=== PATIENT | male | born 1940 | race Two or more races ===

== ENCOUNTER → 2020-07-28 | Outpatient (CLI) | payer MEDICARE, OTHER ==
[~2020-07-28] MED LIST: CHOL500021 PO; DILT240C33 PO; FENO145T3 PO; FINA5TAB4 PO; LEVO50TA5 PO; LISI1TAB23 PO; LOVA20TA2 PO; METF10007 PO; TAMS0.4C97 PO
--- NOTE | 2020-07-28 16:33 | KCIC ---
CT of the chest without contrast 07/28/2020 INDICATION: Lung mass. COMPARISON STUDY: Chest radiograph July 25, 2020. Chest radiograph April 20, 2010. CT of the abdomen and pelvis July 25, 2020 TECHNIQUE: Multidetector CT imaging of the chest was performed without contrast. FINDINGS: Heart is normal in size. No pericardial effusion is seen. Multifocal coronary calcification noted. There is a large peripherally spiculated mass in the right upper lobe. Mass abuts the pleura posteriorly, and the major fissure inferiorly mass measures approximately 5.7 cm x 4.1 cm x 5.2 cm. Anterior and lateral to this also in the upper lobe is a mass somewhat multilobular in appearance measuring approximately 2.5 cm x 2.4 cm x 3.5 cm. Both masses have linear projections extending to the pleura. there is an 8 mm rounded nodule right lower lobe (axial image 34). There is a 5 mm nodule more inferior right lower lobe (axial image 41). There is a partially calcified nodule in the basilar right lower lobe measuring 1.2 cm in diameter (axial image 46).There are few nonspecific sub-5 mm groundglass somewhat nodular opacities in the right middle lobe. There is a subpleural nodular opacity which could reflect scarring in the lingula measuring approximately 1.1 cm in diameter. (Axial image 36). There is a densely sclerotic lesion in the Moderate to severe emphysematous changes are noted throughout the lungs with scattered subpleural and intraparenchymal blebs/cysts. No pleural effusion is seen. No focal infiltrate concerning for pneumonia is seen. No abnormal appearance of the lateral left kidney with calcification. This is partially visualized. The upper abdomen is otherwise unremarkable. There is a densely sclerotic lesion in the right manubrium possibly relating to a bone island. No other acute osseous process is identified. IMPRESSION: 1. 2 large right-sided pulmonary masses with multiple pulmonary nodules as described above in detail. Findings concerning for primary lung cancer with intrapulmonary metastasis. Metastasis from a more remote site is also possible. 2. Moderate to severe emphysematous changes 3. Abnormal appearance of the left kidney. Refer to dedicated contrast-enhanced CT of the abdomen CT DOSING PQRS STATEMENT: One or more of the following individualized dose reduction techniques were utilized for this examination: 1. Automated exposure control 2. Adjustment of the mA and/or kV according to patient size 3. Use of iterative reconstruction technique Electronically signed by: Ozzie Paul MD (07/28/2020 4:31 PM) [id number]
== END | disposition home or self-care (01) ==
LOC: KCIC CT 15:27
PROVIDERS: ATTEND Internal Medicine Pulmonary Disease
DX: J43.9 Emphysema, unspecified (principal); R91.8 Other nonspecific abnormal finding of lung field; I25.10 Atherosclerotic heart disease of native coronary artery without angina pectoris
CPT/HCPCS: 71250

== ENCOUNTER 2020-08-04 08:15 | Outpatient (CLI) | payer MEDICARE, OTHER ==
[2020-08-04] VITALS (14 sets, daily range): BP systolic 105–144; BP diastolic 58–78
[~2020-08-04] VITALS: Ht 160 cm; Wt 74.8 kg
[2020-08-04] MEDS ORDERED: METF10007 PO (08:46)
[2020-08-04] MEDS ORDERED: CHOL500021 PO (08:46)
[2020-08-04] MEDS ORDERED: LISI1TAB23 PO (08:46)
[2020-08-04] MEDS ORDERED: FINA5TAB4 PO (08:46)
[2020-08-04] MEDS ORDERED: TAMS0.4C97 PO (08:46)
[2020-08-04] MEDS ORDERED: LEVO50TA5 PO (08:46)
[2020-08-04] MEDS ORDERED: LOVA20TA2 PO (08:46)
[2020-08-04] MEDS ORDERED: DILT240C33 PO (08:46)
[2020-08-04] MEDS ORDERED: FENO145T3 PO (08:46)
[2020-08-04 09:00] LABS: BASO % 1 % (0-3); EOS # 0.2 x10^3/uL (0.0-0.7); EOS % 2 % (0-3); HEMATOCRIT 41.9 % (39.0-53.0); LYMPH # 0.8 x10^3/uL (1.0-4.8); LYMPH % 9 % (24-48); MEAN CORPUSCULAR HEMOGLOBIN 29 pg (25-35); MEAN CORPUSCULAR HGB CONC 33 g/dL (31-37); MEAN CORPUSCULAR VOLUME 86 fL (79-100); MONO # 0.7 x10^3/uL (0.0-1.1); MONO % 8 % (0-9); NEUT # 6.6 x10^3/uL (1.8-7.7); NEUT % 80 % (31-73); PLATELET COUNT 277 x10^3/uL (140-400); RED BLOOD COUNT 4.88 x10^6/uL (4.30-5.70); RED CELL DISTRIBUTION WIDTH 14.5 % (11.5-14.5); WHITE BLOOD COUNT 8.2 x10^3/uL (4.0-11.0)
[2020-08-04] MEDS ORDERED: LIDOCAINE WITH 8.4% SOD BICARB 3 ML DISP.SYRIN. ONE (09:00)
[2020-08-04 09:09] LABS: PROTHROMBIN TIME PATIENT 12.8 SEC (11.7-14.0)
[2020-08-04 09:12] LABS: CREATININE 1.3 mg/dL (0.7-1.3); GFR 53.4
[2020-08-04] MEDS ORDERED: fentaNYL PF VIAL 100 MCG/2 ML VIAL ONE (09:36)
[2020-08-04] MEDS ORDERED: MIDAZOLAM HCL/PF 2 MG/2 ML VIAL. ONE (09:36)
[2020-08-04] MEDS ORDERED: MIDAZOLAM HCL/PF 2 MG/2 ML VIAL. IV ONE (09:45)
[2020-08-04] MEDS ORDERED: fentaNYL PF VIAL 100 MCG/2 ML VIAL IV ONE (09:45)
[2020-08-04] MEDS ORDERED: LIDOCAINE WITH 8.4% SOD BICARB 3 ML DISP.SYRIN. IJ ONE (09:45)
--- NOTE | 2020-08-04 10:07 | PDOC ---
BRIEF OPERATIVE NOTE Pre-Op Diagnosis left lung mass Post-Op Diagnosis same Procedure Performed CT biopsy Surgeon Josh Anesthesia Type: Conscious Sedation Specimens Obtained 4 x 20g cores Findings left lung mass biopsy Complications No immediate DANYELL SIERRA MD Aug 04, 2020 10:07
--- NOTE | 2020-08-04 12:59 | NUR ---
discharge instructions reviewed with patient. Pt ambulated and tolerated PO. PIV dc'd. Pt discharged home with family
--- NOTE | 2020-08-04 13:09 | RAD ---
2 frontal views of the chest in inspiration and expiration without comparison for status post lung biopsy. FINDINGS: Right lung masses are identified projecting over the upper lobe. No pneumothorax or pleural effusion is seen. Left lung is clear. Heart size within normal limits. IMPRESSION: 1. No pneumothorax or pleural effusion status post right lung biopsy. Electronically signed by: Chadwick Moreno MD (08/04/2020 1:07 PM) [id number]
--- NOTE | 2020-08-04 16:44 | RAD ---
Procedure: CT-guided biopsy of right lung mass Clinical Indication: Adult male with posterior right lung mass suspicious for neoplasm Sedation: Conscious sedation was administered with a total intraprocedural [id number] time of 15 minutes. The patient was monitored by a qualified independent observer throughout the time of sedation. Please refer to the medical record for exact doses of medications utilized to achieve moderate sedation. Antibiotics: None Sterility: The procedure was performed in its entirety using appropriate elements of sterile technique. Consent: The procedure was explained in its entirety to the patient or the patients designated service support representative by a member of the treatment team, including a discussion of the risks, benefits and commonly accepted alternatives to the procedure, as well as the expected consequences of no therapy whatsoever. Discussion of the risks included, but was not limited to, those that are most frequent and those that are rare but possibly severe or life-threatening, as well as the possibility of unforeseen complications. Technique and Findings: Following informed consent, the patient was prepped and draped in usual sterile fashion. Preliminary CT scan of the area of interest was performed. 1% lidocaine was used to achieve local anesthesia over the area of interest. A small dermatotomy was made. Under periodic CT surveillance, a 19-gauge needle guide was advanced towards the target lesion 4 separate 20-gauge core biopsy specimens were obtained and preserved in formalin. A blood patch was applied as the needle guide was removed and hemostasis was achieved with manual compression. Complications: No images Impression: 1. CT-guided right lung biopsy as described. PQRS Compliance Statement: One or more of the following individualized dose reduction techniques were utilized for this examination: 1. Automated exposure control 2. Adjustment of the mA and/or kV according to patient size 3. Use of iterative reconstruction technique
--- NOTE | 2020-08-08 14:07 | PATHOLOGY ---
[facility] Accession Number: [id number] . 01 Material submitted: . lung - RIGHT LUNG MASS CORE BIOPSY. Modifiers: right . 01 Clinical history: . RIGHT LUNG MASS . 02 Diagnosis: Lung tissue, right lung mass needle biopsies: - ADENOCARCINOMA, MODERATELY DIFFERENTIATED, WITH ASSOCIATED PULMONARY SCAR. SEE COMMENT. (JPM:[facility] 08/08/2020) [facility] 08/08/2020 1337 Local . 02 Comment: Sections of the right lung mass needle biopsy reveal replacement of lung parenchyma by scar tissue. Focally present within the scar tissue are irregular glands. The glands are lined by atypical cells having pale eosinophilic to vacuolated cytoplasm, and possessing enlarged, moderately pleomorphic hyperchromatic nuclei focally containing prominent nucleoli. There is focal tumor necrosis. 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 The case is also examined by Dr. Gil, who concurs with the diagnosis. The results are telephoned to Dr Romo at 1:35 PM on 08/08/20. ([facility] 08/08/2020) . 02 Electronically signed: . Moise James MD, Pathologist NPI- [id number] . 01 Gross description: . The specimen is received in formalin, labeled "Chad Yeh, right lung biopsy". Received are six needle cores of pale acuna soft tissue ranging in length from 0.3 to 0.6 cm in length by 0.1 cm in diameter. The specimen is submitted entirely in cassette A1 through A3. ([facility]; 08/05/2020) QAC/QAC 08/05/2020 1611 Local . 02 Pathologist provided ICD-10: C34.91 . 02 CPT . 601291 Specimen Comment: A courtesy copy of this report has been sent to [phone], [phone] Specimen Comment: [id number], Specimen Comment: Report sent to ,DR ORTIZ / DR RIVER Performed at: 01 [facility] [address], [place] [id number] MD Kip Mccabe MD Phone: [phone] Performed at: 02 [facility] [address] [place], [place] [id number] MD Moise James MD Phone: [phone]
== END 2020-08-04 13:08 | disposition home or self-care (01) ==
LOC: INTRAD 08:15
PROVIDERS: ATTEND Internal Medicine Pulmonary Disease
DX: R91.8 Other nonspecific abnormal finding of lung field (principal); J43.9 Emphysema, unspecified; Z87.891 Personal history of nicotine dependence; Z79.899 Other long term (current) drug therapy; Z79.01 Long term (current) use of anticoagulants
CPT/HCPCS: 32405; 36415; 71046; 77012; 80048; 85025; 85610; 99152; J2250; J3010; J3490; 88305; 88341; 88342

== ENCOUNTER → 2020-08-19 | Outpatient (CLI) | payer MEDICARE, OTHER ==
[2020-08-04 12:40] VITALS: BP 105/65
[~2020-08-19] MED LIST changes: +GADOTERATE 7.5 MMOL/15ML VIAL. IVP ONE
--- NOTE | 2020-08-19 13:12 | RAD ---
MRI Brain with and without contrast History:Lung adenocarcinoma Technique: Multiplanar, multi sequential pre and postcontrast MR imaging was performed of the brain. Comparison: None Findings: There is mild motion. There is no evidence of recent infarct or cytotoxic edema. Ventricular size is within normal limits. There is mild generalized supratentorial atrophy.There is no significant midline shift, intraaxial mass effect, or focal abnormal extra-axial fluid collection. There is small focus of nonenhancing T2 and FLAIR hyperintense signal of the right frontal peripheral deep white matter. 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 There is no nodular parenchymal or leptomeningeal enhancement. There is preservation of the major intracranial flow-voids at the skull base. The cerebellar tonsils are normal in location. There is no significant abnormality of the pineal gland or pituitary gland. There is mild to moderate bilateral ethmoid air cell mucosal thickening. There is very minimal patchy fluid of the left mastoid air cells.There is preserved marrow signal of the clivus. There is focus of nonenhancing decreased signal on all sequences of the right parietal scalp, could be complex sebaceous cyst or nonspecific calcification. Impression: 1. There is no abnormal intracranial enhancement. 2. There is mild fairly generalized supratentorial atrophy. There is small focus of nonenhancing T2 hyperintense on the right frontal deep white matter most likely sequela of previous ischemia. 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 Electronically signed by: Cameron Golden MD (08/19/2020 1:10 PM) [id number]
--- NOTE | 2020-08-19 18:59 | RAD ---
EXAMINATION: PET W CT SKULL TO MIDTHIGH HISTORY: Lung adenocarcinoma COMPARISON/CORRELATION: CT chest abdomen and pelvis 01/12/2009 with contrast, CT chest without contrast 04/04/2012, CT chest without contrast 07/28/2020 FINDINGS: Net dose 14.49 mCi F-18 FDG was administered intravenously for purposes of PET/CT exam. Blood glucose level at the time of radiotracer administration was 148 mg/dL. Imaging was performed from the skull base to the proximal thighs. Hepatic reference uptake is SUV max of 3.3 . Head and neck No abnormal uptake. Thorax The patient's known posterior right upper lung mass which abuts the pleura, intense uptake is seen primarily in its periphery with SUV max of 7.5. Central photopenia noted. At the smaller mass which is at the same level anterolaterally, SUV max is 8.4. At the right lower lobe nodule at the mid thoracic level, no uptake is evident. This 0.7 cm diameter nodule is borderline in size for PET resolution. This nodule likely represents a benign process however as it is similar upon correlation with 04/04/2012 CT chest without contrast exam. Within the lingula, there is nodular scarring which abuts the pleura measuring up to 1 cm diameter on axial image 25 of series 3. This has SUV max of 2.2. Centrilobular emphysema is seen. Right lung base calcified granuloma is present. Sclerotic density at the right manubrium is mildly increased in size compared to 04/04/2012 compatible with a bone island. ABDOMEN: Fatty infiltration of liver is present. Cholelithiasis noted. Scarring involving the left kidney posteriorly is present. No abnormal uptake involving the upper abdomen. Midline ventral hernia is large in size containing nonstrangulated segment of the transverse colon. Nonenlarged mesenteric lymph nodes are present. Pelvis Marked prostatomegaly is present. Prostate gland measures 6.8 cm transverse by 5.7 cm anteroposterior. No enlarged pelvic lymph nodes. There are scattered sclerotic foci involving the lower lumbar spine and bony pelvis. Many of these are similar upon correlation with 01/12/2009 CT exam compatible with bone islands although some have increased in size since then. There is punctate density on axial image 351 of series #3 involving the left symphysis pubis and it measures 0.3 cm in diameter. Also at the right posterior column, there is a sclerotic density measuring 0.7 cm diameter which is new in the interval. Bilateral inguinal hernias are present containing omental fat. IMPRESSION: Intense uptake involving the known right upper lung mass is compatible with active neoplastic involvement. Uptake involving the lingular nodular scar is present but not especially intense. Interval follow-up to assess stability by CT may be performed. Marked prostatomegaly. Multiple sclerotic bony densities are present involving the lower lumbar spine and pelvis although many of these are seen on the previous CT exam. These are compatible with bone islands. Very few sclerotic densities are new in the interval. PQRS Compliance Statement: One or more of the following individualized dose reduction techniques were utilized for this examination: 1. Automated exposure control 2. Adjustment of the mA and/or kV according to patient size 3. Use of iterative reconstruction technique Electronically signed by: Rishi Marcial MD (08/19/2020 6:56 PM) [id number]
== END | disposition home or self-care (01) ==
LOC: PETSC 09:43
PROVIDERS: ATTEND Internal Medicine Hematology & Oncology
DX: C34.11 Malignant neoplasm of upper lobe, right bronchus or lung (principal); R91.1 Solitary pulmonary nodule; E03.9 Hypothyroidism, unspecified; N40.0 Benign prostatic hyperplasia without lower urinary tract symptoms; K40.90 Unilateral inguinal hernia, without obstruction or gangrene, not specified as recurrent; K76.0 Fatty (change of) liver, not elsewhere classified; K80.20 Calculus of gallbladder without cholecystitis without obstruction; G31.89 Other specified degenerative diseases of nervous system; Z86.73 Personal history of transient ischemic attack (TIA), and cerebral infarction without residual deficits
CPT/HCPCS: 70553; 78815; A9552; A9575

== ENCOUNTER → 2020-08-26 | Outpatient (CLI) | payer MEDICARE, OTHER ==
[2020-08-04 12:40] VITALS: BP 105/65
[~2020-08-26] MED LIST changes: -GADOTERATE 7.5 MMOL/15ML VIAL. IVP ONE
[2020-08-26 10:10] LABS: BASO # 0.1 x10^3/uL (0.0-0.2); BASO % 1 % (0-3); EOS # 0.2 x10^3/uL (0.0-0.7); EOS % 2 % (0-3); HEMATOCRIT 43.6 % (39.0-53.0); HEMOGLOBIN 14.9 g/dL (13.0-17.5); LYMPH # 0.8 x10^3/uL (1.0-4.8); LYMPH % 10 % (24-48); MEAN CORPUSCULAR HEMOGLOBIN 29 pg (25-35); MEAN CORPUSCULAR HGB CONC 34 g/dL (31-37); MEAN CORPUSCULAR VOLUME 85 fL (79-100); MONO # 0.6 x10^3/uL (0.0-1.1); MONO % 7 % (0-9); NEUT # 6.8 x10^3/uL (1.8-7.7); NEUT % 81 % (31-73); PLATELET COUNT 278 x10^3/uL (140-400); RED BLOOD COUNT 5.13 x10^6/uL (4.30-5.70); RED CELL DISTRIBUTION WIDTH 14.4 % (11.5-14.5); WHITE BLOOD COUNT 8.5 x10^3/uL (4.0-11.0)
[2020-08-26 10:24] LABS: CALCIUM 9.5 mg/dL (8.5-10.1); CREATININE 1.3 mg/dL (0.7-1.3); GFR 53.4; POTASSIUM 3.8 mmol/L (3.5-5.1)
[2020-08-26 10:30] LABS: ALBUMIN 3.7 g/dL (3.4-5.0); ALBUMIN/GLOBULIN RATIO 0.9 (1.0-1.7); TOTAL BILIRUBIN 0.4 mg/dL (0.2-1.0); TOTAL PROTEIN 7.7 g/dL (6.4-8.2)
== END | disposition home or self-care (01) ==
LOC: ONCLAB 09:48
PROVIDERS: ATTEND Internal Medicine Hematology & Oncology
DX: Z12.5 Encounter for screening for malignant neoplasm of prostate (principal); C34.11 Malignant neoplasm of upper lobe, right bronchus or lung
CPT/HCPCS: 36415; 80053; 85025; G0103

== ENCOUNTER → 2020-09-20 | Outpatient (CLI) | payer MEDICARE, OTHER ==
[2020-08-04 12:40] VITALS: BP 105/65
[2020-09-20 10:00] LABS: BASO % 0 % (0-3); EOS # 0.2 x10^3/uL (0.0-0.7); EOS % 2 % (0-3); HEMATOCRIT 42.7 % (39.0-53.0); HEMOGLOBIN 14.3 g/dL (13.0-17.5); LYMPH # 0.7 x10^3/uL (1.0-4.8); LYMPH % 8 % (24-48); MEAN CORPUSCULAR HEMOGLOBIN 29 pg (25-35); MEAN CORPUSCULAR HGB CONC 33 g/dL (31-37); MEAN CORPUSCULAR VOLUME 86 fL (79-100); MONO # 0.6 x10^3/uL (0.0-1.1); MONO % 7 % (0-9); NEUT # 7.1 x10^3/uL (1.8-7.7); NEUT % 83 % (31-73); PLATELET COUNT 272 x10^3/uL (140-400); RED BLOOD COUNT 4.95 x10^6/uL (4.30-5.70); RED CELL DISTRIBUTION WIDTH 14.6 % (11.5-14.5); WHITE BLOOD COUNT 8.5 x10^3/uL (4.0-11.0)
[2020-09-20 10:22] LABS: CALCIUM 9.7 mg/dL (8.5-10.1); CREATININE 1.3 mg/dL (0.7-1.3); GFR 53.4
[2020-09-20 10:32] LABS: ALBUMIN 3.4 g/dL (3.4-5.0); ALBUMIN/GLOBULIN RATIO 0.9 (1.0-1.7); MAGNESIUM 1.9 mg/dL (1.8-2.4); TOTAL BILIRUBIN 0.3 mg/dL (0.2-1.0); TOTAL PROTEIN 7.4 g/dL (6.4-8.2)
== END ==
LOC: ONCLAB 09:27
PROVIDERS: ATTEND Internal Medicine Hematology & Oncology
DX: C34.11 Malignant neoplasm of upper lobe, right bronchus or lung (principal)
CPT/HCPCS: 36415; 80053; 82378; 83615; 83735; 85025

== ENCOUNTER → 2020-09-22 | Outpatient (CLI) | payer MEDICARE, OTHER ==
[2020-08-04 12:40] VITALS: BP 105/65
[2020-09-22 14:28] LABS: BASO % 0 % (0-3); EOS % 0 % (0-3); HEMATOCRIT 41.4 % (39.0-53.0); HEMOGLOBIN 14.1 g/dL (13.0-17.5); LYMPH # 0.7 x10^3/uL (1.0-4.8); LYMPH % 6 % (24-48); MEAN CORPUSCULAR HEMOGLOBIN 29 pg (25-35); MEAN CORPUSCULAR HGB CONC 34 g/dL (31-37); MEAN CORPUSCULAR VOLUME 86 fL (79-100); MONO # 0.5 x10^3/uL (0.0-1.1); MONO % 4 % (0-9); NEUT # 11.6 x10^3/uL (1.8-7.7); NEUT % 90 % (31-73); PLATELET COUNT 292 x10^3/uL (140-400); RED BLOOD COUNT 4.82 x10^6/uL (4.30-5.70); RED CELL DISTRIBUTION WIDTH 14.8 % (11.5-14.5); WHITE BLOOD COUNT 12.8 x10^3/uL (4.0-11.0)
[2020-09-22 14:42] LABS: CALCIUM 9.5 mg/dL (8.5-10.1); CREATININE 1.6 mg/dL (0.7-1.3)
[2020-09-22 14:47] LABS: ALBUMIN 3.7 g/dL (3.4-5.0); ALBUMIN/GLOBULIN RATIO 1.1 (1.0-1.7); DIRECT BILIRUBIN 0.1 mg/dL (0.0-0.2); TOTAL BILIRUBIN 0.3 mg/dL (0.2-1.0); TOTAL PROTEIN 7.2 g/dL (6.4-8.2)
[2020-09-22 15:20] LABS: % LYMPHS 5 % (24-48); % MONOS 4 % (0-10); % SEGS 91 % (35-66); PLT ESTIMATE ADEQUATE (ADEQUATE); TOXIC VACUOLATION SLIGHT
== END ==
LOC: ONCLAB 14:12
PROVIDERS: ATTEND Internal Medicine Hematology & Oncology
DX: C34.11 Malignant neoplasm of upper lobe, right bronchus or lung (principal)
CPT/HCPCS: 36415; 80053; 82248; 83615; 85007; 85025

== ENCOUNTER 2020-09-23 06:58 | Outpatient (CLI) | payer MEDICARE, OTHER ==
[~2020-09-23] VITALS: Ht 162.6 cm; Wt 76.7 kg
[2020-09-23] VITALS (7 sets, daily range): BP systolic 86–140; BP diastolic 50–72
[2020-09-23] MEDS ORDERED: ceFAZolin SODIUM IV Push 1 GM VIAL. IVP ONE ×2 (07:15→08:32)
[2020-09-23] MEDS ORDERED: LIDOCAINE 1%/EPI 1:100,000 20 ML VIAL. ONE (08:00)
[2020-09-23 08:18] LABS: PROTHROMBIN TIME PATIENT 12.8 SEC (11.7-14.0)
[2020-09-23] MEDS ORDERED: MIDAZOLAM HCL/PF 2 MG/2 ML VIAL. ONE (08:32)
[2020-09-23] MEDS ORDERED: fentaNYL PF VIAL 100 MCG/2 ML VIAL ONE (08:32)
[2020-09-23] MEDS ORDERED: LIDOCAINE 1%/EPI 1:100,000 20 ML VIAL. INJ ONE (09:00)
[2020-09-23] MEDS ORDERED: fentaNYL PF VIAL 100 MCG/2 ML VIAL IV ONE (09:00)
[2020-09-23] MEDS ORDERED: MIDAZOLAM HCL/PF 2 MG/2 ML VIAL. IV ONE (09:00)
--- NOTE | 2020-09-23 10:28 | RAD ---
Procedure: Ultrasound and fluoroscopically guided placement of left internal jugular power port.. 09/23/2020 8:24 AM Clinical Indication: LUNG CA Sedation: Conscious sedation was administered for 30 minutes. The patient was monitored by a qualified independent observer throughout the time of sedation. Please refer to the medical record for exact doses of medications utilized to achieve moderate sedation. Fluoroscopy time: 0.3 minutes Dose area product: 1 Gycm2 Consent: The procedure was explained in its entirety to the patient or the patients designated patient intake representative by a member of the treatment team, including a discussion of the risks, benefits and commonly accepted alternatives to the procedure, as well as the expected consequences of no therapy whatsoever. Discussion of the risks included, but was not limited to, those that are most frequent and those that are rare but possibly severe or life-threatening, as well as the possibility of unforeseen complications. Technique and Findings: All elements of maximal sterile barrier technique including the use of a cap, mask, sterile gown, sterile gloves, large sterile sheet, appropriate hand hygiene, and 2% chlorhexidine for cutaneous antisepsis (or acceptable alternative antiseptic per current guidelines) were followed for this procedure. Following informed consent, and a timeout procedure, the patient was prepped and draped in the usual sterile fashion. Ultrasound interrogation of the left neck revealed patency and compressibility of the left internal jugular vein. A 21-gauge micropuncture was then used to gain access to this vein under ultrasound guidance. A hard copy ultrasound image was recorded. The needle was exchanged over a wire for a sheath. A 1 inch incision was made several centimeters inferior to the venotomy site. A catheter was tunneled from this site dermatotomy site in the neck. Catheter was advanced through peel-away sheath such that its tip was in the proximal right atrium with the patient supine. The catheter was trimmed to length and connected to the port reservoir. The port was found to flush and aspirate normally. The wound was closed in layers using 4-0 Vicryl suture. Sterile dressings were applied. Impression: Successful ultrasound and fluoroscopically guided placement of a left internal jugular PowerPort
--- NOTE | 2020-09-23 10:40 | NUR ---
Discharge Note: BEATRIZ TAM Discharge instructions and discharge home medications reviewed with Patient and a copy given. All questions have been answered and understanding verbalized. The following instructions and handouts were given: moderate sedation,implanted port & packet of port instructions with needle Discontinued lines and drains: Peripheral IV intact. Patient discharged to Home or Self Care withFamily Membervia Wheelchair
== END 2020-09-23 10:43 | disposition home or self-care (01) ==
LOC: INTRAD 06:58
PROVIDERS: ATTEND Internal Medicine Hematology & Oncology
DX: C34.92 Malignant neoplasm of unspecified part of left bronchus or lung (principal); E03.9 Hypothyroidism, unspecified; Z79.01 Long term (current) use of anticoagulants; Z87.891 Personal history of nicotine dependence; Z79.899 Other long term (current) drug therapy
CPT/HCPCS: 36415; 36561; 76937; 77001; 85610; 85730; 99152; 99153; C1751; C1769; C1892; J0690; J2250; J3010; J3490

== ENCOUNTER → 2020-09-27 | Outpatient (CLI) | payer MEDICARE, OTHER ==
[2020-09-23 10:25] VITALS: BP 114/58
[2020-09-27 09:33] LABS: BASO % 1 % (0-3); EOS # 0.1 x10^3/uL (0.0-0.7); EOS % 2 % (0-3); HEMOGLOBIN 13.1 g/dL (13.0-17.5); LYMPH # 0.5 x10^3/uL (1.0-4.8); LYMPH % 9 % (24-48); MEAN CORPUSCULAR HEMOGLOBIN 29 pg (25-35); MEAN CORPUSCULAR HGB CONC 34 g/dL (31-37); MEAN CORPUSCULAR VOLUME 86 fL (79-100); MONO # 0.4 x10^3/uL (0.0-1.1); MONO % 7 % (0-9); NEUT % 82 % (31-73); PLATELET COUNT 246 x10^3/uL (140-400); RED BLOOD COUNT 4.56 x10^6/uL (4.30-5.70); RED CELL DISTRIBUTION WIDTH 14.1 % (11.5-14.5); WHITE BLOOD COUNT 6.1 x10^3/uL (4.0-11.0)
[2020-09-27 09:46] LABS: CALCIUM 9.4 mg/dL (8.5-10.1); CREATININE 1.2 mg/dL (0.7-1.3); GFR 58.6; POTASSIUM 3.8 mmol/L (3.5-5.1)
[2020-09-27 09:52] LABS: ALBUMIN 3.3 g/dL (3.4-5.0); ALBUMIN/GLOBULIN RATIO 0.9 (1.0-1.7); DIRECT BILIRUBIN 0.1 mg/dL (0.0-0.2); TOTAL BILIRUBIN 0.2 mg/dL (0.2-1.0); TOTAL PROTEIN 6.9 g/dL (6.4-8.2)
== END ==
LOC: ONCLAB 09:12
PROVIDERS: ATTEND Internal Medicine Hematology & Oncology
DX: C34.11 Malignant neoplasm of upper lobe, right bronchus or lung (principal)
CPT/HCPCS: 36415; 80053; 82248; 83615; 85025

== ENCOUNTER → 2020-10-04 | Outpatient (CLI) | payer MEDICARE, OTHER ==
[2020-09-23 10:25] VITALS: BP 114/58
[2020-10-04 09:42] LABS: BASO % 0 % (0-3); EOS % 1 % (0-3); HEMATOCRIT 37.5 % (39.0-53.0); HEMOGLOBIN 12.5 g/dL (13.0-17.5); LYMPH # 0.3 x10^3/uL (1.0-4.8); LYMPH % 6 % (24-48); MEAN CORPUSCULAR HEMOGLOBIN 29 pg (25-35); MEAN CORPUSCULAR HGB CONC 33 g/dL (31-37); MEAN CORPUSCULAR VOLUME 86 fL (79-100); MONO # 0.5 x10^3/uL (0.0-1.1); MONO % 10 % (0-9); NEUT # 4.5 x10^3/uL (1.8-7.7); NEUT % 83 % (31-73); PLATELET COUNT 235 x10^3/uL (140-400); RED BLOOD COUNT 4.37 x10^6/uL (4.30-5.70); RED CELL DISTRIBUTION WIDTH 14.7 % (11.5-14.5); WHITE BLOOD COUNT 5.4 x10^3/uL (4.0-11.0)
[2020-10-04 10:04] LABS: CREATININE 1.1 mg/dL (0.7-1.3); GFR 64.7; POTASSIUM 3.7 mmol/L (3.5-5.1)
[2020-10-04 10:07] LABS: ALBUMIN 3.2 g/dL (3.4-5.0); ALBUMIN/GLOBULIN RATIO 0.9 (1.0-1.7); TOTAL BILIRUBIN 0.3 mg/dL (0.2-1.0); TOTAL PROTEIN 6.6 g/dL (6.4-8.2)
== END ==
LOC: ONCLAB 09:16
PROVIDERS: ATTEND Internal Medicine Hematology & Oncology
DX: C34.11 Malignant neoplasm of upper lobe, right bronchus or lung (principal)
CPT/HCPCS: 36415; 80053; 85025

== ENCOUNTER → 2020-10-11 | Outpatient (CLI) | payer MEDICARE, OTHER ==
[2020-09-23 10:25] VITALS: BP 114/58
[2020-10-11 09:25] LABS: BASO % 1 % (0-3); EOS % 1 % (0-3); HEMATOCRIT 37.3 % (39.0-53.0); HEMOGLOBIN 12.6 g/dL (13.0-17.5); LYMPH # 0.2 x10^3/uL (1.0-4.8); LYMPH % 6 % (24-48); MEAN CORPUSCULAR HEMOGLOBIN 29 pg (25-35); MEAN CORPUSCULAR HGB CONC 34 g/dL (31-37); MEAN CORPUSCULAR VOLUME 87 fL (79-100); MONO # 0.4 x10^3/uL (0.0-1.1); MONO % 10 % (0-9); NEUT # 3.4 x10^3/uL (1.8-7.7); NEUT % 82 % (31-73); PLATELET COUNT 206 x10^3/uL (140-400); RED BLOOD COUNT 4.31 x10^6/uL (4.30-5.70); RED CELL DISTRIBUTION WIDTH 14.4 % (11.5-14.5); WHITE BLOOD COUNT 4.1 x10^3/uL (4.0-11.0)
[2020-10-11 09:38] LABS: CALCIUM 8.9 mg/dL (8.5-10.1); CREATININE 1.1 mg/dL (0.7-1.3); GFR 64.7; POTASSIUM 4.1 mmol/L (3.5-5.1)
[2020-10-11 09:44] LABS: ALBUMIN 3.3 g/dL (3.4-5.0); TOTAL BILIRUBIN 0.3 mg/dL (0.2-1.0); TOTAL PROTEIN 6.7 g/dL (6.4-8.2)
[2020-10-11 12:43] LABS: % ATYL 1 % (0-0); % BANDS 14 % (0-9); % BASOS 2 % (0-3); % EOS 1 % (0-5); % LYMPHS 5 % (24-48); % MONOS 10 % (0-10); % MYELOS 1 % (0-0); % SEGS 66 % (35-66); NUCLEATED RBC 1
[2020-10-11 12:45] LABS: PLT ESTIMATE ADEQUATE (ADEQUATE)
== END ==
LOC: ONCLAB 09:10
PROVIDERS: ATTEND Internal Medicine Hematology & Oncology
DX: C34.11 Malignant neoplasm of upper lobe, right bronchus or lung (principal)
CPT/HCPCS: 36415; 80053; 85007; 85025

== ENCOUNTER → 2020-10-18 | Outpatient (CLI) | payer MEDICARE, OTHER ==
[2020-09-23 10:25] VITALS: BP 114/58
[2020-10-18 09:45] LABS: BASO % 1 % (0-3); EOS % 0 % (0-3); HEMATOCRIT 36.4 % (39.0-53.0); HEMOGLOBIN 12.2 g/dL (13.0-17.5); LYMPH # 0.2 x10^3/uL (1.0-4.8); LYMPH % 3 % (24-48); MEAN CORPUSCULAR HEMOGLOBIN 29 pg (25-35); MEAN CORPUSCULAR HGB CONC 34 g/dL (31-37); MEAN CORPUSCULAR VOLUME 87 fL (79-100); MONO # 0.5 x10^3/uL (0.0-1.1); MONO % 9 % (0-9); NEUT # 4.8 x10^3/uL (1.8-7.7); NEUT % 87 % (31-73); PLATELET COUNT 162 x10^3/uL (140-400); RED BLOOD COUNT 4.17 x10^6/uL (4.30-5.70); RED CELL DISTRIBUTION WIDTH 15.3 % (11.5-14.5); WHITE BLOOD COUNT 5.6 x10^3/uL (4.0-11.0)
[2020-10-18 09:50] LABS: CALCIUM 8.9 mg/dL (8.5-10.1); CREATININE 1.2 mg/dL (0.7-1.3); GFR 58.6; POTASSIUM 3.9 mmol/L (3.5-5.1)
[2020-10-18 09:59] LABS: ALBUMIN 3.3 g/dL (3.4-5.0); TOTAL BILIRUBIN 0.3 mg/dL (0.2-1.0); TOTAL PROTEIN 6.6 g/dL (6.4-8.2)
== END ==
LOC: ONCLAB 09:16
PROVIDERS: ATTEND Internal Medicine Hematology & Oncology
DX: C34.11 Malignant neoplasm of upper lobe, right bronchus or lung (principal)
CPT/HCPCS: 36415; 80053; 85025

== ENCOUNTER → 2020-10-25 | Outpatient (CLI) | payer MEDICARE, OTHER ==
[2020-09-23 10:25] VITALS: BP 114/58
[2020-10-25 09:44] LABS: BASO % 0 % (0-3); EOS % 1 % (0-3); HEMATOCRIT 34.7 % (39.0-53.0); HEMOGLOBIN 11.8 g/dL (13.0-17.5); LYMPH # 0.2 x10^3/uL (1.0-4.8); LYMPH % 5 % (24-48); MEAN CORPUSCULAR HEMOGLOBIN 30 pg (25-35); MEAN CORPUSCULAR HGB CONC 34 g/dL (31-37); MEAN CORPUSCULAR VOLUME 88 fL (79-100); MONO # 0.3 x10^3/uL (0.0-1.1); MONO % 10 % (0-9); NEUT # 2.8 x10^3/uL (1.8-7.7); NEUT % 84 % (31-73); PLATELET COUNT 136 x10^3/uL (140-400); RED BLOOD COUNT 3.97 x10^6/uL (4.30-5.70); RED CELL DISTRIBUTION WIDTH 16.1 % (11.5-14.5); WHITE BLOOD COUNT 3.3 x10^3/uL (4.0-11.0)
[2020-10-25 09:54] LABS: CALCIUM 8.9 mg/dL (8.5-10.1); CREATININE 1.3 mg/dL (0.7-1.3); GFR 53.4
[2020-10-25 10:00] LABS: ALBUMIN 3.2 g/dL (3.4-5.0); ALBUMIN/GLOBULIN RATIO 1.1 (1.0-1.7); TOTAL BILIRUBIN 0.3 mg/dL (0.2-1.0); TOTAL PROTEIN 6.2 g/dL (6.4-8.2)
== END ==
LOC: ONCLAB 09:15
PROVIDERS: ATTEND Internal Medicine Hematology & Oncology
DX: C34.11 Malignant neoplasm of upper lobe, right bronchus or lung (principal)
CPT/HCPCS: 36415; 80053; 85025

== ENCOUNTER → 2020-10-28 | Outpatient (CLI) | payer MEDICARE, OTHER ==
[2020-09-23 10:25] VITALS: BP 114/58
--- NOTE | 2020-10-28 16:45 | RAD ---
EXAM: CHEST PA LATERAL INDICATION: Left basilar abnormal lung sounds on physical exam. History of adenocarcinoma.. TECHNIQUE: PA and lateral views COMPARISON: CT chest without IV contrast of 07/28/2020 and chest x-ray of 08/04/2020 FINDINGS: Interval placement of a left jugular approach tunneled chest port with the tip near the cavoatrial junction. The heart size is normal. The great vessels appear unremarkable. There is no hilar or mediastinal mass. Lungs show interval cavitation in the dominant posterior right upper lobe lung mass and decrease in density in the more peripheral and slightly smaller right upper lobe lung mass, compatible with a positive treatment response. An additional peripheral nodular density in the inferior left lung is present, projecting over the anterior left sixth rib and posterior left ninth rib. There is interval hazy opacity at the left lung base that has developed in the posterior costophrenic angle. There is no pleural effusion or pneumothorax. There are no significant osseous abnormalities. IMPRESSION: 1. Left lower lobe ill-defined infiltrate compatible with a developing pneumonia. Correlate clinically. 2. Lung masses bilaterally showing evidence of a positive treatment response most conspicuously in the dominant right upper lobe mass. Discussed with Dr. Cooley in person at 1:35 PM on 10/28/2020 Electronically signed by: Edward Sloan MD (10/28/2020 2:20 PM) [id number]
== END ==
LOC: RAD 10:11
PROVIDERS: ATTEND Radiology Radiation Oncology
DX: C34.11 Malignant neoplasm of upper lobe, right bronchus or lung (principal); R91.1 Solitary pulmonary nodule
CPT/HCPCS: 71046

== ENCOUNTER → 2020-11-01 | Outpatient (CLI) | payer MEDICARE, OTHER ==
[2020-09-23 10:25] VITALS: BP 114/58
[2020-11-01 10:58] LABS: CALCIUM 8.5 mg/dL (8.5-10.1); CREATININE 1.1 mg/dL (0.7-1.3); GFR 64.7; POTASSIUM 3.8 mmol/L (3.5-5.1)
[2020-11-01 11:04] LABS: BASO % 0 % (0-3); EOS % 1 % (0-3); HEMATOCRIT 32.9 % (39.0-53.0); LYMPH # 0.2 x10^3/uL (1.0-4.8); LYMPH % 9 % (24-48); MEAN CORPUSCULAR HEMOGLOBIN 29 pg (25-35); MEAN CORPUSCULAR HGB CONC 34 g/dL (31-37); MEAN CORPUSCULAR VOLUME 88 fL (79-100); MONO # 0.2 x10^3/uL (0.0-1.1); MONO % 13 % (0-9); NEUT # 1.4 x10^3/uL (1.8-7.7); NEUT % 77 % (31-73); PLATELET COUNT 170 x10^3/uL (140-400); RED BLOOD COUNT 3.75 x10^6/uL (4.30-5.70); TOTAL BILIRUBIN 0.3 mg/dL (0.2-1.0)
[2020-11-01 11:08] LABS: WHITE BLOOD COUNT 1.8 x10^3/uL (4.0-11.0)
[2020-11-01 13:17] LABS: % BANDS 7 % (0-9); % BASOS 2 % (0-3); % LYMPHS 5 % (24-48); % MONOS 11 % (0-10); % SEGS 75 % (35-66); PLT ESTIMATE ADEQUATE (ADEQUATE)
[2020-11-01 13:18] LABS: ANISOCYTOSIS PRESENT
== END ==
LOC: SPEC 10:36
PROVIDERS: ATTEND Internal Medicine Hematology & Oncology
DX: C34.11 Malignant neoplasm of upper lobe, right bronchus or lung (principal)
CPT/HCPCS: 36415; 80053; 85007; 85025

== ENCOUNTER → 2020-12-08 | Outpatient (CLI) | payer MEDICARE, OTHER ==
[2020-09-23 10:25] VITALS: BP 114/58
--- NOTE | 2020-12-08 11:07 | RAD ---
Noncontrast CT scan of the chest compared to PET scan dated August 19, 2020 for lung cancer. TECHNIQUE: Contiguous axial CT images are obtained from the thoracic inlet to the base of diaphragm. No IV contrast was administered. Sagittal and coronal reformations are evaluated. FINDINGS: Advanced emphysema is redemonstrated, with increased prominence of all of the subpleural bu llae relative to prior scan. There is extensive mixed groundglass and consolidative infiltrate throug hout the right upper lung, with consolidative infiltrate in the peripheral aspect of the superior seg ment left lower lobe as well. The previously seen dominant posterior right upper lobe lung mass has u ndergone significant cavitation, with overall reduction size from prior measurements of 4.9 x 4.3 cm to 4.2 x 4.2 cm today. This may reflect treatment change. A prominent satellite nodule also remains b ut is undergone similar reduction in size. In the posterior aspect of the right upper lobe there is a multilobular nodular mass which is stable in size. Many anterior aspect the left upper lobe there is a mixed groundglass and solid nodule which appears to be slowly coalescing. The previously seen ling ular nodule or scar appears larger as well, though is obscured by parenchymal lung disease to some ex tent. Incidental note of cholelithiasis. Evaluation of the remaining upper abdominal organs is limite d by lack of IV contrast. There is vasculopathy. No suspicious mediastinal or hilar adenopathy. No si gnificant osseous abnormalities. IMPRESSION: 1. Interval development of extensive mixed ground glass and consolidative infiltrates bilaterally con cerning for infectious pneumonia. 2. Interval enlargement of virtually all of the bullae associated with advanced emphysema. 3. Mild reduction in the size of the dominant posterior right lung masses, the largest which is under gone cavitary conversion. 4. Stable right upper lobe multilobulated lung nodule. 5. Increased conspicuity and confluence of a mixed groundglass and solid nodule in the left anterior upper lung. 6. Increased size of a pleural parenchymal nodular scar in the lingula, though this is difficult to i nterpret given surrounding parenchymal lung disease. 7. Cholelithiasis without CT evidence of acute cholecystitis. PQRS Compliance Statement: One or more of the following individualized dose reduction techniques were utilized for this examinat ion: 1. Automated exposure control 2. Adjustment of the mA and/or kV according to patient size 3. Use of iterative reconstruction technique Electronically signed by: Chadwick Moreno MD (12/08/2020 11:04 AM) [id number]
== END ==
LOC: CT 09:59
PROVIDERS: ATTEND Internal Medicine Hematology & Oncology
DX: C34.11 Malignant neoplasm of upper lobe, right bronchus or lung (principal); R91.1 Solitary pulmonary nodule; J18.9 Pneumonia, unspecified organism; J43.9 Emphysema, unspecified; K80.20 Calculus of gallbladder without cholecystitis without obstruction
CPT/HCPCS: 71250

== ENCOUNTER → 2020-12-23 | Outpatient (CLI) | payer MEDICARE, OTHER ==
[2020-09-23 10:25] VITALS: BP 114/58
[2020-12-23 10:16] LABS: BASO # 0.1 x10^3/uL (0.0-0.2); BASO % 1 % (0-3); EOS # 0.1 x10^3/uL (0.0-0.7); EOS % 1 % (0-3); HEMOGLOBIN 12.9 g/dL (13.0-17.5); LYMPH # 0.8 x10^3/uL (1.0-4.8); LYMPH % 8 % (24-48); MEAN CORPUSCULAR HEMOGLOBIN 29 pg (25-35); MEAN CORPUSCULAR HGB CONC 33 g/dL (31-37); MEAN CORPUSCULAR VOLUME 88 fL (79-100); MONO # 0.8 x10^3/uL (0.0-1.1); MONO % 9 % (0-9); NEUT # 7.6 x10^3/uL (1.8-7.7); NEUT % 82 % (31-73); PLATELET COUNT 233 x10^3/uL (140-400); RED BLOOD COUNT 4.41 x10^6/uL (4.30-5.70); RED CELL DISTRIBUTION WIDTH 19.7 % (11.5-14.5); WHITE BLOOD COUNT 9.3 x10^3/uL (4.0-11.0)
[2020-12-23 10:24] LABS: CREATININE 1.1 mg/dL (0.7-1.3); GFR 64.7; POTASSIUM 3.7 mmol/L (3.5-5.1)
[2020-12-23 10:29] LABS: ALBUMIN/GLOBULIN RATIO 0.9 (1.0-1.7); TOTAL BILIRUBIN 0.3 mg/dL (0.2-1.0); TOTAL PROTEIN 6.3 g/dL (6.4-8.2)
== END ==
LOC: ONCLAB 09:48
PROVIDERS: ATTEND Internal Medicine Hematology & Oncology
DX: Z85.118 Personal history of other malignant neoplasm of bronchus and lung (principal)
CPT/HCPCS: 36415; 80053; 85025

== ENCOUNTER → 2021-01-20 | Outpatient (CLI) | payer MEDICARE, OTHER ==
[2020-09-23 10:25] VITALS: BP 114/58
--- NOTE | 2021-01-20 17:39 | RAD ---
CT scan chest without contrast 01/20/2021 CLINICAL HISTORY: History of lung cancer. TECHNIQUE: Unenhanced, contiguous, 5 mm axial sections were obtained through the chest and upper abdo men. One or more of the following individualized dose reduction techniques were utilized for this study: 1. Automated exposure control. 2. Adjustment of the mA and/or kV according to patient size. 3. Use of iterative reconstruction technique. FINDINGS: Comparison study is dated 12/08/2020. A left internal jugular Ibmngc-r-Tpmv type catheter is unchanged in position. Atherosclerotic calcifi cation of the thoracic aorta and its branches is noted. The thoracic aorta is tortuous but tapers nor harris. The heart is normal in size. No hilar, mediastinal or axillary lymphadenopathy is noted. Moderate emphysematous changes are seen throughout both lungs. A cavitary mass is seen involving the posterior aspect of the right upper lobe. It is surrounded by consolidated lung and difficult to defi ne. It measures approximately 4.1 x 3.9 x 3.8 cm in craniocaudal, AP and transverse dimensions. It do es not appear significantly changed. The additional mass seen within the right upper lobe is obscured by consolidated lung. A 2.8 cm irregular masslike opacity is seen involving the superior aspect of t he right upper lobe which is unchanged. A 7 mm nodule is seen involving the superior aspect of the ri ght upper lobe which is unchanged. A 1.3 cm partially calcified granuloma is seen involving the right lower lobe, unchanged. An irregular opacity is seen involving the left upper lobe, superiorly which measures 1.5 cm in size. This is unchanged. A consolidative area of infiltrate is seen involving the right upper lobe which partially obscures th e patient's right upper lobe lung masses as discussed above. Dependent subsegmental atelectasis is se en involving both lungs. No pneumothorax or pleural effusion is seen. Images through the upper abdomen demonstrate atherosclerotic calcification of the abdominal aorta. An area of scarring seen involving the lateral aspect of the left kidney. A ventral hernia which contai ns nondilated bowel is noted which is incompletely visualized on this study. Small calcified gallston es are seen. Degenerative changes are seen throughout the thoracic spine. IMPRESSION: Increased consolidation is seen involving the right upper lobe which partially obscures t he 4.1 cm cavitary mass within the right upper lobe consistent with the patient's history of lung can cer. This does not appear significantly changed in size since the previous examination. The spiculate d mass seen within the right upper lobe on the previous examination is obscured by surrounding consol idated lung. No new mass lesion is seen. Electronically signed by: Asa Verma MD (01/20/2021 5:37 PM) [id number]
== END ==
LOC: CT 12:09
PROVIDERS: ATTEND Internal Medicine Pulmonary Disease
DX: J43.9 Emphysema, unspecified (principal); R91.1 Solitary pulmonary nodule
CPT/HCPCS: 71250

== ENCOUNTER → 2021-02-01 | Outpatient (CLI) | payer MEDICARE, OTHER ==
[2020-09-23 10:25] VITALS: BP 114/58
[2021-02-01 10:44] LABS: BASO # 0.1 x10^3/uL (0.0-0.2); BASO % 1 % (0-3); EOS # 0.2 x10^3/uL (0.0-0.7); EOS % 2 % (0-3); HEMATOCRIT 40.8 % (39.0-53.0); LYMPH # 0.6 x10^3/uL (1.0-4.8); LYMPH % 7 % (24-48); MEAN CORPUSCULAR HEMOGLOBIN 28 pg (25-35); MEAN CORPUSCULAR HGB CONC 32 g/dL (31-37); MEAN CORPUSCULAR VOLUME 88 fL (79-100); MONO # 0.7 x10^3/uL (0.0-1.1); MONO % 8 % (0-9); NEUT # 6.7 x10^3/uL (1.8-7.7); NEUT % 82 % (31-73); PLATELET COUNT 239 x10^3/uL (140-400); RED BLOOD COUNT 4.67 x10^6/uL (4.30-5.70); RED CELL DISTRIBUTION WIDTH 17.5 % (11.5-14.5); WHITE BLOOD COUNT 8.1 x10^3/uL (4.0-11.0)
[2021-02-01 10:46] LABS: CALCIUM 8.8 mg/dL (8.5-10.1); CREATININE 1.2 mg/dL (0.7-1.3); GFR 58.6; POTASSIUM 3.7 mmol/L (3.5-5.1)
[2021-02-01 10:51] LABS: ALBUMIN 3.1 g/dL (3.4-5.0); ALBUMIN/GLOBULIN RATIO 0.9 (1.0-1.7); TOTAL BILIRUBIN 0.3 mg/dL (0.2-1.0); TOTAL PROTEIN 6.7 g/dL (6.4-8.2)
== END ==
LOC: ONCLAB 10:18
PROVIDERS: ATTEND Internal Medicine Hematology & Oncology
DX: C34.11 Malignant neoplasm of upper lobe, right bronchus or lung (principal)
CPT/HCPCS: 36415; 80053; 85025

== ENCOUNTER → 2021-03-06 | Day surgery (SDC) | payer MEDICARE ==
[~2021-03-06] MED LIST changes: +AMOX1TAB10 PO; +LIDOCAINE 2% PF 5 ML VIAL. ONE; +LIDOCAINE 2% VISCOUS 100 ML BOTTLE. ONE; +PROC10TA57 PO; +PROPOFOL 10 MG/ML (20ML) VIAL. IV ONE
[2021-03-06] MEDS: LIDOCAINE 4% TOPICAL 50 ML SOLUTION. MM PRN (10:52)
[2021-03-06] MEDS: LIDOCAINE 2% VISCOUS 100 ML BOTTLE. MM PRN (10:53)
[2021-03-06] MEDS: LIDOCAINE 1% Multi-Dose 20 ML VIAL. INJ PRN (10:53)
[2021-03-06] MEDS: ALBUTEROL SULFATE 2.5 MG/3 ML NEBU. NEB PRN (10:54)
[2021-03-06] MEDS: IV RINGERS,LACTATED 1000ML 1,000 ML IV ONE (10:56)
[2021-03-06] MEDS: EPINEPHrine 1 MG/ML VIAL INJ PRN (11:25)
--- NOTE | 2021-03-06 11:57 | OP ---
DATE OF SURGERY: 03/06/2021 PROCEDURES: Bronchoscopy, brush biopsy, bronchoalveolar lavage. INDICATIONS: The patient with a history of bronchogenic carcinoma, abnormal CT chest with possible lung abscess, not improving on repeat CT chest, undergoing a diagnostic bronchoscopy. Risks, benefits, and alternatives reviewed with the patient, he consented. SEDATION: See Anesthesia notes. DESCRIPTION OF PROCEDURE: A timeout was performed prior to sedation. Vital signs and O2 saturation were maintained within normal limits throughout the procedure. The bronchoscope was passed through the right naris. The vocal cords were identified moving bilaterally without any dysfunction. Vocal cords were anesthetized with a total of 5 mL of 4% lidocaine. Bronchoscope was passed through the vocal cords into the proximal trachea, which was normal. The left segments and subsegments were inspected. There was no endobronchial lesion. There was evidence of previous lobectomy. On the right side, bronchoscope was advanced to the right upper lobe and right lower lobe. There was no endobronchial lesion. The scope was then wedged into the right upper lobe segment and a bronchoalveolar lavage was performed along with cytology. The scope was wedged into the right lower lobe segment and a bronchoalveolar lavage and cytology brushing was likewise performed. FINDINGS: 1. Normal vocal cords. 2. Evidence of previous lobectomy. 3. No endobronchial lesions visualized on the right side. There were no purulent secretions. PLAN: We will await the BAL results and cytology brushing results. The patient tolerated procedure well with no immediate complications. YU ORTIZ MD DR: NOLA/kelsi JOB#: [id number] / [id number] Dr. ALETA Wilson MICHAEL MD
[2021-03-06 12:45] VITALS: BP 159/72
[2021-03-06] MEDS: IPRATRPIUM/ALBUTEROL 0.5/2.5MG 3 ML NEBU. NEB ONE (12:56)
--- NOTE | 2021-03-07 14:20 | PATHOLOGY ---
Note [facility] Accession Number: [id number] TESTS RESULT FLAG UNITS REF RANGE LAB Clinician Provided Cytology Information No. of containers..01 Other (Miscellaneous) Source: RUL/RLL BRONCH BRUSH DIAGNOSIS: 02 RUL/RLL BRONCH BRUSH NEGATIVE FOR MALIGNANT CELLS. REACTIVE BRONCHIAL CELLS ARE PRESENT. PULMONARY MACROPHAGES (DUST CELLS) ARE PRESENT. Signed out by: 02 Moise James MD, Pathologist NPI- [id number] Performed by: Karlene Wang Entry Level Accounting Clerk ([facility]) Gross description: 01 35ML, COLORLESS, 2FX /LCS 03/07/2021 0522 Local FLAG LEGEND: L-Low Normal,H-High Normal,LL-Alert Low,HH-Alert High <-Panic Low,>-Panic High,A-Abnormal,AA-Critical Abnormal Performed at: [address] [place] [address] Alfredo De Paz MD, 02 [facility] [address] [place] [address] Moise James MD, Specimen Comment: A courtesy copy of this report has been sent to [phone] Specimen Comment: Report sent to DR ORTIZ Specimen Comment: A duplicate report has been generated due to demographic updates. Performed at: [address], [place], [place] [id number] MD Alfredo De Paz MD Phone: [phone]
--- NOTE | 2021-03-07 14:20 | PATHOLOGY ---
Note [facility] Accession Number: [id number] TESTS RESULT FLAG UNITS REF RANGE LAB Clinician Provided Cytology Information No. of containers..01 Other (Miscellaneous) Source: RLL BAL DIAGNOSIS: 02 RLL BAL NEGATIVE FOR MALIGNANT CELLS. FOCALLY REACTIVE BRONCHIAL EPITHELIAL CELLS PRESENT. PULMONARY MACROPHAGES PRESENT, INDICATIVE OF LOWER RESPIRATORY TRACT SAMPLING. Signed out by: 02 Moise James MD, Pathologist NPI- [id number] Performed by: Karlene Wang, Package Sealer Machine ([facility]) Gross description: 01 10ML, RED, 1TP /LCS 03/07/2021 0531 Local FLAG LEGEND: L-Low Normal,H-High Normal,LL-Alert Low,HH-Alert High <-Panic Low,>-Panic High,A-Abnormal,AA-Critical Abnormal Performed at: [address] [place] [address] Alfredo De Paz MD, 02 [facility] [address] [place] [address] Moise James MD, Specimen Comment: A courtesy copy of this report has been sent to [phone] Specimen Comment: Report sent to DR ORTIZ Specimen Comment: A duplicate report has been generated due to demographic updates. Performed at: [address], [place], [place] [id number] MD Alfredo De Paz MD Phone: [phone]
--- NOTE | 2021-03-07 14:20 | PATHOLOGY ---
Note [facility] Accession Number: [id number] TESTS RESULT FLAG UNITS REF RANGE LAB Clinician Provided Cytology Information No. of containers..01 Other (Miscellaneous) Source: RUL BAL DIAGNOSIS: 02 RUL BAL NEGATIVE FOR MALIGNANT CELLS. FOCALLY REACTIVE BRONCHIAL EPITHELIAL CELLS PRESENT. PULMONARY MACROPHAGES PRESENT, INDICATIVE OF LOWER RESPIRATORY TRACT SAMPLING. Signed out by: 02 Moise James MD, Pathologist NPI- [id number] Performed by: Karlene Wang, Paving Foreman ([facility]) Gross description: 01 5ML, RED, 1TP /LCS 03/07/2021 0524 Local FLAG LEGEND: L-Low Normal,H-High Normal,LL-Alert Low,HH-Alert High <-Panic Low,>-Panic High,A-Abnormal,AA-Critical Abnormal Performed at: [address] [place] [address] Alfredo De Paz MD, 02 [facility] [address] [place] [address] Moise James MD, Specimen Comment: A courtesy copy of this report has been sent to [phone] Specimen Comment: Report sent to DR ORTIZ Specimen Comment: A duplicate report has been generated due to demographic updates. Performed at: [address], [place], [place] [id number] MD Alfredo De Paz MD Phone: [phone]
== END | disposition home or self-care (01) ==
LOC: SURG 10:16 → MERGE 10:16
PROVIDERS: ATTEND Internal Medicine Pulmonary Disease
DX: J96.10 Chronic respiratory failure, unspecified whether with hypoxia or hypercapnia (principal); R91.8 Other nonspecific abnormal finding of lung field; E78.00 Pure hypercholesterolemia, unspecified; I10 Essential (primary) hypertension; E11.9 Type 2 diabetes mellitus without complications; E66.9 Obesity, unspecified; Z87.891 Personal history of nicotine dependence; Z79.899 Other long term (current) drug therapy; Z98.890 Other specified postprocedural states
CPT/HCPCS: 31624; 87070; 87205; 87426; 94618; 94640; J0171; J2704; J3490; 31622

== ENCOUNTER → 2021-03-08 | Outpatient (CLI) | payer MEDICARE ==
[2021-03-06 12:45] VITALS: BP 159/72
[~2021-03-08] MED LIST changes: -LIDOCAINE 2% PF 5 ML VIAL. ONE; -LIDOCAINE 2% VISCOUS 100 ML BOTTLE. ONE; -PROPOFOL 10 MG/ML (20ML) VIAL. IV ONE
[2021-03-08 10:24] LABS: CALCIUM 9.3 mg/dL (8.5-10.1); CREATININE 1.1 mg/dL (0.7-1.3); GFR 64.7; POTASSIUM 3.7 mmol/L (3.5-5.1)
[2021-03-08 10:29] LABS: BASO % 1 % (0-3); EOS # 0.2 x10^3/uL (0.0-0.7); EOS % 3 % (0-3); HEMATOCRIT 40.5 % (39.0-53.0); HEMOGLOBIN 13.3 g/dL (13.0-17.5); LYMPH # 0.5 x10^3/uL (1.0-4.8); LYMPH % 7 % (24-48); MEAN CORPUSCULAR HEMOGLOBIN 28 pg (25-35); MEAN CORPUSCULAR HGB CONC 33 g/dL (31-37); MEAN CORPUSCULAR VOLUME 85 fL (79-100); MONO # 0.5 x10^3/uL (0.0-1.1); MONO % 8 % (0-9); NEUT # 5.5 x10^3/uL (1.8-7.7); NEUT % 81 % (31-73); PLATELET COUNT 281 x10^3/uL (140-400); RED BLOOD COUNT 4.77 x10^6/uL (4.30-5.70); RED CELL DISTRIBUTION WIDTH 17.2 % (11.5-14.5); WHITE BLOOD COUNT 6.8 x10^3/uL (4.0-11.0)
[2021-03-08 10:30] LABS: ALBUMIN 3.2 g/dL (3.4-5.0); ALBUMIN/GLOBULIN RATIO 0.8 (1.0-1.7); TOTAL BILIRUBIN 0.4 mg/dL (0.2-1.0)
[2021-03-08 10:37] LABS: FREE T4 1.21 ng/dL (0.76-1.46); THYROID STIM HORMONE (TSH) 4.268 uIU/mL (0.358-3.74)
== END ==
LOC: MERGE 09:52 → ONCLAB 09:52
PROVIDERS: ATTEND Internal Medicine Hematology & Oncology
DX: C34.11 Malignant neoplasm of upper lobe, right bronchus or lung (principal); E03.2 Hypothyroidism due to medicaments and other exogenous substances
CPT/HCPCS: 36415; 80053; 84439; 84443; 85025

== ENCOUNTER → 2021-04-19 | Outpatient (CLI) | payer MEDICARE, OTHER ==
[2021-03-06 12:45] VITALS: BP 159/72
[2021-04-19 12:44] LABS: HEMATOCRIT 41.3 % (39.0-53.0); HEMOGLOBIN 13.5 g/dL (13.0-17.5); MEAN CORPUSCULAR HEMOGLOBIN 27 pg (25-35); MEAN CORPUSCULAR HGB CONC 33 g/dL (31-37); MEAN CORPUSCULAR VOLUME 83 fL (79-100); PLATELET COUNT 284 x10^3/uL (140-400); RED BLOOD COUNT 4.97 x10^6/uL (4.30-5.70); RED CELL DISTRIBUTION WIDTH 16.8 % (11.5-14.5); WHITE BLOOD COUNT 6.8 x10^3/uL (4.0-11.0)
[2021-04-19 12:45] LABS: BASO % 1 % (0-3); EOS # 0.3 x10^3/uL (0.0-0.7); EOS % 4 % (0-3); LYMPH # 0.7 x10^3/uL (1.0-4.8); LYMPH % 11 % (24-48); MONO # 0.6 x10^3/uL (0.0-1.1); MONO % 9 % (0-9); NEUT # 5.2 x10^3/uL (1.8-7.7); NEUT % 76 % (31-73)
[2021-04-19 12:51] LABS: ALBUMIN 3.7 g/dL (3.4-5.0); ALBUMIN/GLOBULIN RATIO 1.1 (1.0-1.7); CALCIUM 9.1 mg/dL (8.5-10.1); GFR 72.3; POTASSIUM 3.9 mmol/L (3.5-5.1); TOTAL BILIRUBIN 0.3 mg/dL (0.2-1.0); TOTAL PROTEIN 7.1 g/dL (6.4-8.2)
== END ==
LOC: ONCLAB 11:52
PROVIDERS: ATTEND Internal Medicine Hematology & Oncology
DX: C34.11 Malignant neoplasm of upper lobe, right bronchus or lung (principal); J44.9 Chronic obstructive pulmonary disease, unspecified; Z85.528 Personal history of other malignant neoplasm of kidney; Z85.118 Personal history of other malignant neoplasm of bronchus and lung
CPT/HCPCS: 36415; 80053; 85025

== ENCOUNTER → 2021-06-05 | Outpatient (CLI) | payer MEDICARE, OTHER ==
[2021-03-06 12:45] VITALS: BP 159/72
[2021-06-05 10:34] LABS: BASO # 0.1 x10^3/uL (0.0-0.2); BASO % 1 % (0-3); EOS # 0.3 x10^3/uL (0.0-0.7); EOS % 5 % (0-3); HEMATOCRIT 41.8 % (39.0-53.0); HEMOGLOBIN 13.5 g/dL (13.0-17.5); LYMPH # 0.7 x10^3/uL (1.0-4.8); LYMPH % 12 % (24-48); MEAN CORPUSCULAR HEMOGLOBIN 27 pg (25-35); MEAN CORPUSCULAR HGB CONC 32 g/dL (31-37); MEAN CORPUSCULAR VOLUME 82 fL (79-100); MONO # 0.5 x10^3/uL (0.0-1.1); MONO % 9 % (0-9); NEUT # 4.4 x10^3/uL (1.8-7.7); NEUT % 73 % (31-73); PLATELET COUNT 264 x10^3/uL (140-400); RED BLOOD COUNT 5.09 x10^6/uL (4.30-5.70); RED CELL DISTRIBUTION WIDTH 17.2 % (11.5-14.5); WHITE BLOOD COUNT 6.1 x10^3/uL (4.0-11.0)
[2021-06-05 10:49] LABS: CALCIUM 9.2 mg/dL (8.5-10.1); GFR 72.3; POTASSIUM 3.9 mmol/L (3.5-5.1)
[2021-06-05 10:55] LABS: ALBUMIN 3.4 g/dL (3.4-5.0); ALBUMIN/GLOBULIN RATIO 0.9 (1.0-1.7); TOTAL BILIRUBIN 0.3 mg/dL (0.2-1.0); TOTAL PROTEIN 7.2 g/dL (6.4-8.2)
== END ==
LOC: ONCLAB 10:14
PROVIDERS: ATTEND Internal Medicine Hematology & Oncology
DX: C34.11 Malignant neoplasm of upper lobe, right bronchus or lung (principal)
CPT/HCPCS: 36415; 80053; 85025

== ENCOUNTER → 2021-07-14 | Outpatient (CLI) | payer MEDICARE, OTHER ==
[2021-03-06 12:45] VITALS: BP 159/72
--- NOTE | 2021-07-14 20:39 | RAD ---
CT chest without contrast: Reason for examination: Lung cancer. Follow-up exam. Comparison is made to previous studies dated 03/03/2021 and 01/20/2021. Helical images were obtained through the chest with no contrast administered. Reconstruction was perf ormed in sagittal and coronal planes. Exposure: One or more of the following individualized dose reduction techniques were utilized for thi s examination: 1. Automated exposure control 2. Adjustment of the mA and/or kV according to patient size 3. Use of iterative reconstruction technique. The trachea and mainstem bronchi show no intraluminal lesions. No abnormality seen at the esophagus. The thoracic aorta is normal in course and caliber with some arteriosclerotic vascular calcification. The heart size is normal with no pericardial effusion. The lung julian show a small nodular parenchy mal density anteriorly at the left apex measuring approximately 1.4 x 1.3 x 1.5 cm in AP, transverse and craniocaudal dimensions without significant change. There are emphysematous changes with bulla an d scarring in the right apex. In the right upper lobe, there continues to be parenchymal density pres ent which appears to be more prominent than on previous exam. The cavitary component is no longer maicol ntified. This appears contained air bronchograms and could represent pneumonia. There appears to be a new nodule posterior medially in the left upper lobe measuring approximately 1 cm in greatest dimens ion. There continue to be infiltrates in this left upper lobe posteriorly near the mid lung field whi ch do not show significant interval change. There continues to be a nodule with calcification consist ent with probable granuloma in the right lower lobe laterally measuring 1.3 cm in greatest dimension which is stable. There continues to be a small pulmonary nodule in the superior segment of the right lower lobe measuring approximately 9.5 mm in size which appears to be slightly larger, previously arturo suring 8.8 mm in size. No pleural effusions or pneumothorax are seen. No acute bony abnormalities are seen. No abnormality seen at the liver, spleen, adrenal glands or pancreas. There is cholelithiasis. IMPRESSION: Continued presence of pulmonary nodules bilaterally with slight increase in size in the nodule in the superior segment of the right lower lobe now measuring 9.5 mm in size. New nodule posterior medially in the left upper lobe measuring 1 cm in size. Increasing infiltrates in the right upper lobe with air bronchograms. Cholelithiasis. Electronically signed by: Amelie Abreu MD (07/14/2021 8:37 PM) FRANCESCO
== END ==
LOC: CT 10:32
PROVIDERS: ATTEND Internal Medicine Hematology & Oncology
DX: R91.8 Other nonspecific abnormal finding of lung field (principal); J43.9 Emphysema, unspecified; J98.4 Other disorders of lung; I70.0 Atherosclerosis of aorta; K80.20 Calculus of gallbladder without cholecystitis without obstruction; Z85.118 Personal history of other malignant neoplasm of bronchus and lung
CPT/HCPCS: 71250

== ENCOUNTER → 2021-07-17 | Outpatient (CLI) | payer MEDICARE, OTHER ==
[2021-03-06 12:45] VITALS: BP 159/72
[2021-07-17 10:52] LABS: CALCIUM 9.4 mg/dL (8.5-10.1); CREATININE 1.2 mg/dL (0.7-1.3); GFR 58.6
[2021-07-17 10:57] LABS: ALBUMIN 3.5 g/dL (3.4-5.0); ALBUMIN/GLOBULIN RATIO 0.9 (1.0-1.7); TOTAL BILIRUBIN 0.3 mg/dL (0.2-1.0); TOTAL PROTEIN 7.3 g/dL (6.4-8.2)
[2021-07-17 11:11] LABS: BASO % 1 % (0-3); EOS # 0.3 x10^3/uL (0.0-0.7); EOS % 5 % (0-3); HEMATOCRIT 41.8 % (39.0-53.0); HEMOGLOBIN 13.6 g/dL (13.0-17.5); LYMPH # 0.8 x10^3/uL (1.0-4.8); LYMPH % 14 % (24-48); MEAN CORPUSCULAR HEMOGLOBIN 27 pg (25-35); MEAN CORPUSCULAR HGB CONC 33 g/dL (31-37); MEAN CORPUSCULAR VOLUME 83 fL (79-100); MONO # 0.5 x10^3/uL (0.0-1.1); MONO % 9 % (0-9); NEUT # 4.2 x10^3/uL (1.8-7.7); NEUT % 72 % (31-73); PLATELET COUNT 252 x10^3/uL (140-400); RED BLOOD COUNT 5.06 x10^6/uL (4.30-5.70); RED CELL DISTRIBUTION WIDTH 17.1 % (11.5-14.5); WHITE BLOOD COUNT 5.9 x10^3/uL (4.0-11.0)
== END ==
LOC: ONCLAB 09:50
PROVIDERS: ATTEND Internal Medicine Hematology & Oncology
DX: C34.11 Malignant neoplasm of upper lobe, right bronchus or lung (principal); Z85.118 Personal history of other malignant neoplasm of bronchus and lung
CPT/HCPCS: 36415; 80053; 85025

== ENCOUNTER → 2021-10-12 | Outpatient (CLI) | payer MEDICARE, OTHER ==
[2021-03-06 12:45] VITALS: BP 159/72
[~2021-10-12] MED LIST changes: -LISI1TAB23 PO; +LISI1TAB35 PO
--- NOTE | 2021-10-12 12:39 | RAD ---
EXAM: Chest CT with intravenous contrast. HISTORY: Lung cancer. TECHNIQUE: Computed tomographic images of the chest were obtained following the administration of int ravenous contrast. Multiplanar reformatting was performed. *One or more of the following individualized dose reduction techniques were utilized for this examina tion: 1. Automated exposure control. 2. Adjustment of the mA and/or kV according to patient size. 3. Use of iterative reconstruction technique. COMPARISON: 07/14/2021. FINDINGS: There is stable masslike consolidation with underlying fluid collection within the posterio r superior right thorax. There are traversing bronchi. There has been interval increase in a 2.4 cm s piculated nodule with adjacent pleural thickening within the anterior lateral left mid thorax. There are multiple surrounding groundglass and nodular opacities which are similar when allowing for differ ences in slice position. This includes a 1.4 cm groundglass nodular opacity within the left lung apex and clustered nodules and groundglass opacities within the posterior left upper mid thorax. There is moderate emphysema. There is bilateral multifocal pleural parenchymal scarring. There is no pleural effusion or pneumothorax. The heart is normal in size. There is dilatation of the ascending a alberto to a caliber of 4.3 cm. There is aortic, aortic great vessels and coronary artery atherosclerosi s. There are stable nonspecific mediastinal and hilar lymph nodes. No pathologically enlarged node is seen. There is a left port catheter with the tip in the superior cavoatrial junction. There is no acute finding involving the upper abdomen. There is cholelithiasis. There is heterogeneou s soft tissue density containing fat and peripheral calcifications along the posterior lateral left k idney, measuring approximately 2.9 cm. There is adjacent suspected scarring extending to the spleen. There is slight splenic capsular calcification. There are degenerative changes throughout the spine. There is no acute or suspicious osseous finding. IMPRESSION: 1. Stable masslike consolidation with underlying small fluid collection and traversing bronchi within the posterior superior right thorax. This may be due to stable malignancy or stable post therapeutic changes. 2. Increase in a spiculated nodule measuring 2.4 cm within the anterior lateral left mid thorax. The morphology of this finding is concerning for malignancy. However, given the presence of multiple elda tional scattered stable nonspecific nodular groundglass opacities throughout both lungs, this may be infectious or inflammatory in etiology. PET/CT may be useful for characterization. 3. Emphysema. 4. 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 5. Stable suspected changes related to left renal neoplasm ablation. This can better characterized wi th a dedicated renal protocol CT or MRI. 6. Cholelithiasis. Electronically signed by: Jennyfer Tabor MD (10/12/2021 12:37 PM) [id number]
== END ==
LOC: CT 10:43
PROVIDERS: ATTEND Internal Medicine Hematology & Oncology
DX: R91.8 Other nonspecific abnormal finding of lung field (principal); J43.9 Emphysema, unspecified; J98.4 Other disorders of lung; I71.2 Thoracic aortic aneurysm, without rupture; I25.10 Atherosclerotic heart disease of native coronary artery without angina pectoris; R59.0 Localized enlarged lymph nodes; K80.20 Calculus of gallbladder without cholecystitis without obstruction; Z85.118 Personal history of other malignant neoplasm of bronchus and lung
CPT/HCPCS: 71250

== ENCOUNTER → 2021-10-17 | Outpatient (CLI) | payer MEDICARE, OTHER ==
[2021-03-06 12:45] VITALS: BP 159/72
[2021-10-17 10:29] LABS: BASO % 1 % (0-3); EOS # 0.3 x10^3/uL (0.0-0.7); EOS % 4 % (0-3); HEMATOCRIT 42.1 % (39.0-53.0); HEMOGLOBIN 13.6 g/dL (13.0-17.5); LYMPH # 0.9 x10^3/uL (1.0-4.8); LYMPH % 12 % (24-48); MEAN CORPUSCULAR HEMOGLOBIN 28 pg (25-35); MEAN CORPUSCULAR HGB CONC 32 g/dL (31-37); MEAN CORPUSCULAR VOLUME 85 fL (79-100); MONO # 0.5 x10^3/uL (0.0-1.1); MONO % 8 % (0-9); NEUT # 5.3 x10^3/uL (1.8-7.7); NEUT % 75 % (31-73); PLATELET COUNT 265 x10^3/uL (140-400); RED BLOOD COUNT 4.96 x10^6/uL (4.30-5.70); RED CELL DISTRIBUTION WIDTH 16.2 % (11.5-14.5)
[2021-10-17 10:42] LABS: CALCIUM 8.8 mg/dL (8.5-10.1); CREATININE 1.1 mg/dL (0.7-1.3); GFR 64.6; POTASSIUM 3.8 mmol/L (3.5-5.1)
[2021-10-17 10:48] LABS: ALBUMIN 3.3 g/dL (3.4-5.0); ALBUMIN/GLOBULIN RATIO 0.9 (1.0-1.7); TOTAL BILIRUBIN 0.3 mg/dL (0.2-1.0); TOTAL PROTEIN 6.8 g/dL (6.4-8.2)
== END ==
LOC: ONCLAB 10:11
PROVIDERS: ATTEND Internal Medicine Hematology & Oncology
DX: C34.11 Malignant neoplasm of upper lobe, right bronchus or lung (principal)
CPT/HCPCS: 36415; 80053; 85025

== ENCOUNTER → 2022-01-15 | Outpatient (CLI) | payer MEDICARE, OTHER ==
[2021-03-06 12:45] VITALS: BP 159/72
--- NOTE | 2022-01-15 13:03 | RAD ---
EXAM: Chest CT without intravenous contrast. HISTORY: Lung adenocarcinoma. TECHNIQUE: Computed tomographic images of the chest were obtained without contrast. Multiplanar refor matting was performed. *One or more of the following individualized dose reduction techniques were utilized for this examina tion: 1. Automated exposure control. 2. Adjustment of the mA and/or kV according to patient size. 3. Use of iterative reconstruction technique. COMPARISON: 10/12/2021. FINDINGS: There is stable masslike consolidation with an underlying fluid collection likely due to ne crosis within the posterior right upper lobe. This measures approximately 10 cm and is not significan tly changed when allowing for differences in slice position and measurement technique. There is stabl e right superior paramedian subtle and apical pleural parenchymal scarring and architectural distorti on. There is no pneumothorax or pleural effusion. There is stable aneurysmal dilatation of the ascend ing aorta to a caliber of 4.3 cm. There has been interval increase in a spiculated masslike opacity within the lateral left mid thorax measuring approximately 3.0 cm, compared to a prior measurement of 2.5 cm. There has also been interv al increase in a spiculated masslike opacity within the posterior left upper mid thorax measuring 3.8 cm, compared to a prior measurement of 1.7 cm. There has been interval increase in extensive surroun ding irregular nodular opacities throughout the left lung, the largest of which measures 1.3 cm willie red to a prior measurement of 8 mm. There are few calcified granulomas within the right lung. There i s a 6 mm stable groundglass nodule within the lateral right middle lobe. There is bilateral posterior dependent and basilar atelectasis. There is severe emphysema. Evaluation of the upper abdomen demonstrates hypodensity and surrounding soft tissue within the later al posterior left kidney due to a prior ablation procedure. There are ventral abdominal wall hernias containing fat and a segment of colon, the latter of which is partially included on the [id number] . There are few benign bone islands. There is no acute or suspicious osseous finding. There is cholel ithiasis. IMPRESSION: 1. Stable masslike consolidation with an underlying fluid collection likely due to necrosis within th e posterior right upper lobe measuring approximately 10.0 cm. This may be due to stable malignancy or stable posttreatment changes. 2. Increased spiculated masslike opacity within the lateral left mid thorax measuring 3.0 cm and with in the posterior left upper thorax measuring 3.8 cm. The morphology of these lesions is concerning fo r neoplasm rather than postinfectious or postinflammatory changes. PET/CT may be useful for character ization. 3. Multiple additional scattered subcentimeter nodular opacities throughout the left lung, increased compared the prior study and possibly metastatic, infectious or inflammatory. There is a stable small groundglass nodular opacity within the lateral right middle lobe measuring 6 mm. 4. Severe emphysema. 5. Stable changes involving the left kidney due to prior mass ablation. 6. 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 7. Cholelithiasis. Electronically signed by: Jennyfer Tabor MD (01/15/2022 1:01 PM) [id number]
== END ==
LOC: CT 09:41
PROVIDERS: ATTEND Internal Medicine Hematology & Oncology
DX: C34.11 Malignant neoplasm of upper lobe, right bronchus or lung (principal); R91.8 Other nonspecific abnormal finding of lung field; J43.9 Emphysema, unspecified; K80.20 Calculus of gallbladder without cholecystitis without obstruction; I71.2 Thoracic aortic aneurysm, without rupture
CPT/HCPCS: 71250

== ENCOUNTER → 2022-01-17 | Outpatient (CLI) | payer MEDICARE, OTHER ==
[2021-03-06 12:45] VITALS: BP 159/72
[2022-01-17 10:21] LABS: BASO % 1 % (0-3); EOS # 0.2 x10^3/uL (0.0-0.7); EOS % 3 % (0-3); HEMATOCRIT 41.6 % (39.0-53.0); HEMOGLOBIN 13.4 g/dL (13.0-17.5); LYMPH # 0.8 x10^3/uL (1.0-4.8); LYMPH % 13 % (24-48); MEAN CORPUSCULAR HEMOGLOBIN 27 pg (25-35); MEAN CORPUSCULAR HGB CONC 32 g/dL (31-37); MEAN CORPUSCULAR VOLUME 85 fL (79-100); MONO # 0.5 x10^3/uL (0.0-1.1); MONO % 9 % (0-9); NEUT # 4.2 x10^3/uL (1.8-7.7); NEUT % 74 % (31-73); PLATELET COUNT 252 x10^3/uL (140-400); RED BLOOD COUNT 4.91 x10^6/uL (4.30-5.70); RED CELL DISTRIBUTION WIDTH 16.8 % (11.5-14.5); WHITE BLOOD COUNT 5.7 x10^3/uL (4.0-11.0)
[2022-01-17 10:32] LABS: CALCIUM 8.5 mg/dL (8.5-10.1); CREATININE 1.2 mg/dL (0.7-1.3); GFR 58.4; POTASSIUM 3.8 mmol/L (3.5-5.1)
[2022-01-17 10:38] LABS: ALBUMIN 3.3 g/dL (3.4-5.0); ALBUMIN/GLOBULIN RATIO 0.9 (1.0-1.7); TOTAL BILIRUBIN 0.3 mg/dL (0.2-1.0); TOTAL PROTEIN 7.1 g/dL (6.4-8.2)
== END ==
LOC: ONCLAB 09:56
PROVIDERS: ATTEND Internal Medicine Hematology & Oncology
DX: C34.11 Malignant neoplasm of upper lobe, right bronchus or lung (principal)
CPT/HCPCS: 36415; 80053; 85025

== ENCOUNTER → 2022-01-19 | Outpatient (CLI) | payer MEDICARE, OTHER ==
[2021-03-06 12:45] VITALS: BP 159/72
--- NOTE | 2022-01-19 13:13 | RAD ---
EXAM: PET/CT SKULL BASE THROUGH MID THIGH. HISTORY: Lung cancer. TECHNIQUE: CT of the skull base through the mid thighs was performed for the purposes of attenuation correction. 11.4 mCi F-18 fluorodeoxyglucose were administered intravenously. Blood glucose level at the time of administration was 131 mg/dL. After 60 minutes uptake, positron emission tomography of th e skull base through the mid thighs was performed. The PET and CT data were fused and interpreted in combination on a dedicated workstation. Reported standard uptake values (SUV) are the maximum SUV wit hin a lesional volumetric region of interest. SUV normalization is via body mass. COMPARISON: PET CT 08/19/2020. FINDINGS: Mediastinal blood pool SUV reference value: SUV max, 2.59. SUV mean, 1.95. HEAD AND NECK: No lymphadenopathy or abnormal FDG uptake. There is physiologic uptake in the palatine tonsils, great er on the left. CHEST: There is avid FDG uptake in the spiculated mass in the anterior left upper lobe, SUV max 9.6. Mild FDG uptake in the spiculated mass in the posterior left upper lobe, SUV max 2.33. There is mild FDG uptake in the right upper lobe consolidation, SUV max 2.96 (previously SUV max 8.4 in the posterior right upper lobe masses). An area of photopenia within the consolidation is consiste nt with fluid and necrosis. There is low-level FDG uptake in some of the additional small scattered pulmonary nodules throughout the left lung, likely infectious/inflammatory. No FDG uptake above background in the 2 subcentimeter nodules in the right lower lobe. The ascending thoracic aorta is enlarged measuring 4.3 cm. The heart is normal in size. There are cor onary artery calcifications. A left chest wall port tip terminates at the superior cavoatrial junctio n. No pleural effusion. ABDOMEN AND PELVIS: Fairly diffuse FDG uptake throughout the bowel is likely related to metformin. There is focal FDG upt clara in the superior right renal pole with SUV max 7.5, greater than rest of the renal collecting syst em, indeterminate. No lymphadenopathy. There is cholelithiasis. Treatment changes of the left kidney. Liver, pancreas, spleen,, adrenal glan ds, right kidney, and bladder are normal. Prostatomegaly. Abdominal aorta is normal caliber with mild /moderate calcified atherosclerosis. Unchanged large ventral abdominal wall hernia with multiple open ings containing transverse colon and small bowel. No evidence of complication. There is sigmoid diver ticulosis. No ascites. MUSCULOSKELETAL: No suspicious FDG uptake. Low-level FDG uptake in a right anterior fifth rib fracture. Unchanged scl erotic foci in the pelvis without FDG uptake. Small fat-containing inguinal hernias. The bones are di ffusely demineralized. IMPRESSION: 1. Avid FDG uptake in the spiculated mass in the anterior lateral left upper lobe, consistent with ma lignancy. 2. Mild FDG uptake in the spiculated mass in the posterior left upper lobe and in some of the other s cattered left lung nodule, favored to be infectious/inflammatory however recommend continued attentio n on follow-up. 3. Mild FDG uptake in the right upper lobe consolidation, likely reflecting treatment-related changes . 4. Focal moderate FDG uptake in the superior right renal pole without definite visualized lesion, gre ater than the rest of the renal collecting system. This is indeterminate. Correlate with ultrasound, CT, or MRI for underlying renal lesion. 5. Unchanged enlarged ascending thoracic aorta measuring 4.3 cm. 7. Unchanged large ventral abdominal wall hernia containing bowel. 6. Other chronic findings as above. Electronically signed by: Frances Perkins MD (01/19/2022 12:27 PM) [id number]
== END ==
LOC: PETSC 08:15
PROVIDERS: ATTEND Internal Medicine Hematology & Oncology
DX: C34.11 Malignant neoplasm of upper lobe, right bronchus or lung (principal); K40.90 Unilateral inguinal hernia, without obstruction or gangrene, not specified as recurrent; K80.20 Calculus of gallbladder without cholecystitis without obstruction; K57.30 Diverticulosis of large intestine without perforation or abscess without bleeding; I25.10 Atherosclerotic heart disease of native coronary artery without angina pectoris; K43.9 Ventral hernia without obstruction or gangrene; S22.31XA Fracture of one rib, right side, initial encounter for closed fracture; X58.XXXA Exposure to other specified factors, initial encounter; Y93.89 Activity, other specified; Y92.89 Other specified places as the place of occurrence of the external cause; Y99.8 Other external cause status
CPT/HCPCS: 78815; A9552

== ENCOUNTER → 2022-01-31 | Outpatient (CLI) | payer MEDICARE, OTHER ==
[2021-03-06 12:45] VITALS: BP 159/72
[2022-01-31 10:54] LABS: BASO % 1 % (0-3); EOS # 0.2 x10^3/uL (0.0-0.7); EOS % 3 % (0-3); HEMATOCRIT 42.6 % (39.0-53.0); HEMOGLOBIN 13.6 g/dL (13.0-17.5); LYMPH # 0.7 x10^3/uL (1.0-4.8); LYMPH % 12 % (24-48); MEAN CORPUSCULAR HEMOGLOBIN 28 pg (25-35); MEAN CORPUSCULAR HGB CONC 32 g/dL (31-37); MEAN CORPUSCULAR VOLUME 86 fL (79-100); MONO # 0.5 x10^3/uL (0.0-1.1); MONO % 10 % (0-9); NEUT # 4.1 x10^3/uL (1.8-7.7); NEUT % 74 % (31-73); PLATELET COUNT 245 x10^3/uL (140-400); RED BLOOD COUNT 4.94 x10^6/uL (4.30-5.70); RED CELL DISTRIBUTION WIDTH 16.4 % (11.5-14.5); WHITE BLOOD COUNT 5.6 x10^3/uL (4.0-11.0)
[2022-01-31 11:03] LABS: CALCIUM 8.9 mg/dL (8.5-10.1); CREATININE 1.2 mg/dL (0.7-1.3); GFR 58.4
[2022-01-31 11:10] LABS: ALBUMIN 3.3 g/dL (3.4-5.0); ALBUMIN/GLOBULIN RATIO 0.8 (1.0-1.7); TOTAL BILIRUBIN 0.3 mg/dL (0.2-1.0); TOTAL PROTEIN 7.3 g/dL (6.4-8.2)
== END ==
LOC: ONCLAB 10:11
PROVIDERS: ATTEND Internal Medicine Hematology & Oncology
DX: C34.11 Malignant neoplasm of upper lobe, right bronchus or lung (principal)
CPT/HCPCS: 36415; 80053; 85025

== ENCOUNTER 2022-02-07 08:38 | Outpatient (CLI) | payer MEDICARE, OTHER ==
[2022-02-07] VITALS (13 sets, daily range): BP systolic 116–148; BP diastolic 57–75
[~2022-02-07] VITALS: Ht 165.1 cm; Wt 73.6 kg
[~2022-02-07 08:38] MED LIST changes: +LIDOCAINE WITH 8.4% SOD BICARB 3 ML DISP.SYRIN. ONE
[2022-02-07] MEDS ORDERED: PANT40TA77 PO (09:17)
[2022-02-07 09:27] LABS: PROTHROMBIN TIME PATIENT 13.1 SEC (11.7-14.0)
[2022-02-07] MEDS ORDERED: MIDAZOLAM HCL/PF 2 MG/2 ML VIAL. ONE (09:37)
[2022-02-07] MEDS ORDERED: fentaNYL PF VIAL 100 MCG/2 ML VIAL ONE (09:37)
[2022-02-07] MEDS ORDERED: LIDOCAINE WITH 8.4% SOD BICARB 3 ML DISP.SYRIN. IJ ONE (10:00)
[2022-02-07] MEDS ORDERED: MIDAZOLAM HCL/PF 2 MG/2 ML VIAL. IV ONE (10:00)
[2022-02-07] MEDS ORDERED: fentaNYL PF VIAL 100 MCG/2 ML VIAL IV ONE (10:00)
--- NOTE | 2022-02-07 10:20 | PDOC ---
MODERATE SEDATION ASSESSMENT RISKS/ALTERNATIVES Risks/Alternatives Risks and alternatives of this type of sedation and procedure discussed with: RISK/ALTERNATIVES: Patient H & P ON CHART H & P H & P on chart and reviewed for co-morbid conditions and appropriate labs. H&P ON CHART: Yes STATUS PREG STATUS ASSESSED: Yes MEDS/ALLERGIES REVIEWED Meds/Allergies Reviewed Medications and Allergies including time and route of recently administered narcotics and sedatives. MEDS/ALLERGIES REVIEWED: Yes ASA RATING ASA RATING: II AIRWAY ASSESSMENT Airway Assessment Airway patency, oral function limitations, presence of caps, crowns, dentures, partials, and ability to extend neck assessed. AIRWAY ASSESSMENT: Yes MALLAMPATI SCORE MALLAMPATI SCORE: II PRE-SEDATION ASSESSMENT PRE-SEDATION ASSESSMENT: Yes DANYELL SIERRA MD Feb 07, 2022 10:20
--- NOTE | 2022-02-07 10:21 | PDOC ---
BRIEF OPERATIVE NOTE Pre-Op Diagnosis left lung nodule Post-Op Diagnosis same Procedure Performed CT biopsy Surgeon Josh ERNANDEZ minimal Anesthesia Type: Conscious Sedation Specimens Obtained 4 x 20g cores Findings CT left lung biopsy Complications no immediate DANYELL SIERRA MD Feb 07, 2022 10:21
--- NOTE | 2022-02-07 12:15 | RAD ---
Portable chest x-ray without comparison for status post left lung biopsy. FINDINGS: Large left peripheral opacities present, representing the primary lung lesion likely with s ome surrounding parenchymal hemorrhage. No definite pneumothorax. Irregular opacity in the right lung apex is consistent with posttreatment change of a previa irradiated mass. There is calcified granulo ma in the right lung base. No large pleural effusion or congestive heart failure. Atherosclerosis of the aorta. Degenerative changes of shoulders. IMPRESSION: 1. No evidence of pneumothorax status post left lung biopsy. There may be a small area of parenchymal hemorrhage surrounding the primary biopsy site. Electronically signed by: Chadwick Moreno MD (02/07/2022 12:13 PM) [id number]
--- NOTE | 2022-02-07 12:26 | NUR ---
Discharge Note: BETARIZ TAM Discharge instructions and discharge home medications reviewed with Patient and a copy given. All questions have been answered and understanding verbalized. The following instructions and handouts were given: adult moderate sedation and post lung biopsy aftercare Discontinued lines and drains: Port A Cath intact. Patient discharged to Home or Self Care withFamily Membervia Wheelchair. Patient walked around in CV/OBS without dizziness and ate some crackers and drank some water. No problems noted and bandaid placed on mary cath site to left chest=clean,dry,intact. Biopsy site with gauze and opsite is clean,dry,intact/no bleeding noted.
--- NOTE | 2022-02-08 15:37 | RAD ---
Procedure: CT-guided left lung biopsy Clinical Indication: Adult male with left lung mass, history of both lung and renal cell carcinoma Sedation: Conscious sedation using a combination of Versed and fentanyl was provided for 20 minutes, including continuous monitoring of the patients heart rate, rhythm, blood pressure, oxygen saturation and level of arousability by a trained independent observer. Antibiotics: None Sterility: The procedure was performed in its entirety using appropriate elements of sterile techniqu e. Consent: The procedure was explained in its entirety to the patient or the patients designated repres entative by a member of the treatment team, including a discussion of the risks, benefits and commonl y accepted alternatives to the procedure, as well as the expected consequences of not performing the procedure. Discussion of the risks included, but was not limited to, those that are most frequent an d those that are rare but possibly severe or life-threatening, as well as the possibility of unforese en complications. Technique and Findings: Following informed consent, the patient was prepped and draped in usual steri le fashion. Preliminary CT scan of the area of interest was performed. 1 percent lidocaine was used t o achieve local anesthesia. A small dermatotomy was made. Under periodic CT surveillance, a 19-gauge needle guide was advanced towards the target lesion in the left midlung and 4 separate 20-gauge core biopsy specimens were obtained and preserved in formalin. A blood patch was applied as the needle joe de was removed and hemostasis was achieved with manual compression. Complications: No immediate Impression: 1. CT-guided left lung biopsy as described. PQRS Compliance Statement: One or more of the following individualized dose reduction techniques were utilized for this examinat ion: 1. Automated exposure control 2. Adjustment of the mA and/or kV according to patient size 3. Use of iterative reconstruction technique Electronically signed by: Chadwick Moreno MD (02/08/2022 3:34 PM) [id number]
--- NOTE | 2022-02-08 18:12 | PATHOLOGY ---
[facility] Accession Number: [id number] . 01 Material submitted: . lung - LEFT LUNG MASS CORE BIOPSY. Modifiers: left . 02 Diagnosis: Left lung mass, CT-guided needle biopsy: - ADENOCARCINOMA, MODERATELY-WELL DIFFERENTIATED. SEE COMMENT. (JPM:coal hauler; 02/08/2022) R 02/08/2022 1753 Local . 02 Comment: Sections of the left lung mass CT-guided needle biopsy show replacement of lung parenchyma by malignant epithelial neoplasm. The neoplasm is comprised of irregular glands which infiltrate an inflamed reactive desmoplastic stroma. The tumor cells have moderate amounts of eosinophilic cytoplasm, and possess enlarged, rounded to ovoid, moderately pleomorphic hyperchromatic nuclei containing prominent nucleoli. There are mitotic figures present. 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 The case is also examined by Dr. Sanchez, who concurs with the diagnosis. The results are reported to Dr. Daniel on 02/08/2022 at 3:40 PM. (JPM:coal hauler; 02/08/2022) . 02 Electronically signed: . Moise James MD, Pathologist NPI- [id number] . 01 Gross description: . The specimen is received in formalin, labeled "Chad Rao, left lung biopsy". Received are three needle cores of pale acuna tissue ranging in length from 0.7-1.4 cm, with each measuring 0.1 cm in diameter. The specimen is submitted entirely in cassettes A1 through A3. (CAA; 02/07/2022) QAC/QAC 02/07/2022 1536 Local . 02 Pathologist provided ICD-10: C34.92 . 02 CPT . 340430 Specimen Comment: A courtesy copy of this report has been sent to [phone], [phone] Specimen Comment: [id number] Specimen Comment: Report sent to / DR RIVER Specimen Comment: A duplicate report has been generated due to demographic updates. Performed at: 01 [facility] [address] [facility] [address], [place] [id number] MD Alfredo De Paz MD Phone: [phone] Performed at: 02 [facility] [address] [place], [place] [id number] MD Moise James MD Phone: [phone]
== END 2022-02-07 12:40 | disposition home or self-care (01) ==
LOC: INTRAD 08:38
PROVIDERS: ATTEND Radiology Radiation Oncology
DX: C84.1 Sezary disease (principal); R91.8 Other nonspecific abnormal finding of lung field; J43.9 Emphysema, unspecified; I10 Essential (primary) hypertension; E78.00 Pure hypercholesterolemia, unspecified; E11.9 Type 2 diabetes mellitus without complications; E66.9 Obesity, unspecified; K21.9 Gastro-esophageal reflux disease without esophagitis; N40.0 Benign prostatic hyperplasia without lower urinary tract symptoms; Z87.891 Personal history of nicotine dependence; Z79.84 Long term (current) use of oral hypoglycemic drugs; Z79.899 Other long term (current) drug therapy; Z98.890 Other specified postprocedural states
CPT/HCPCS: 32408; 36415; 71045; 85610; 99152; J2250; J3010; J3490; 88305

== ENCOUNTER → 2022-02-12 | Outpatient (CLI) | payer MEDICARE, OTHER ==
[2022-02-07 12:06] VITALS: BP 148/75
[~2022-02-12] MED LIST changes: +CYCL10TA19 PO; +HYDR-2761 PO; -LIDOCAINE WITH 8.4% SOD BICARB 3 ML DISP.SYRIN. ONE; +PANT40TA77 PO; +ZOLP5TAB PO
--- NOTE | 2022-02-13 10:03 | RAD ---
PQRS Compliance Statement: One or more of the following individualized dose reduction techniques were utilized for this examinat ion: 1. Automated exposure control 2. Adjustment of the mA and/or kV according to patient size 3. Use of iterative reconstruction technique CT LIMITED STUDY 02/12/2022 12:56 PM Indication: Radiation planning COMPARISON: PET CT 01/19/2022. TECHNIQUE: Limited axial CT images of the chest were obtained without intravenous contrast for treatm ent planning. FINDINGS: Moderate centrilobular pulmonary emphysema. Scattered solid noncalcified pulmonary nodules identified within the left lung with more confluent subpleural spiculated nodular opacity in the lingula measur ing up to 3.1 x 2.3 cm. There is similar consolidative changes identified in the right upper lobe arturo suring 9.4 x 5.2 cm. Heart size within normal limits. No significant pericardial effusion. Thoracic a alberto is normal in course and caliber with moderate calcified atheromatous plaque. Post surgical el es identified along the superior pole left kidney. Fat-containing supraumbilical midline hernia measu ring 2.1 cm. Left chest wall infusion port catheter is in similar position. No suspicious osseous abn ormality. IMPRESSION: Similar multifocal nodular opacities within the left upper lobe with focal subpleural nodular mass in the inferior lingula, not significantly changed since prior PET/CT. Posterior right upper lobe massl alexei area of consolidation appear stable. Electronically signed by: Alysa Bowens MD (02/13/2022 10:00 AM) [facility]
== END ==
LOC: CT 12:37
PROVIDERS: ATTEND Radiology Radiation Oncology
DX: C34.11 Malignant neoplasm of upper lobe, right bronchus or lung (principal); R91.8 Other nonspecific abnormal finding of lung field; J43.9 Emphysema, unspecified; K42.9 Umbilical hernia without obstruction or gangrene; I70.0 Atherosclerosis of aorta; Z95.9 Presence of cardiac and vascular implant and graft, unspecified; Z98.890 Other specified postprocedural states
CPT/HCPCS: 76380

== ENCOUNTER 2022-02-20 14:08 | Observation (INO) | payer MEDICARE, OTHER ==
[~2022-02-20] VITALS: Ht 165.1 cm; Wt 73.8 kg
[~2022-02-20 14:08] MED LIST changes: -CYCL10TA19 PO; -HYDR-2761 PO; -ZOLP5TAB PO
[2022-02-20] MEDS ORDERED: ONDANSETRON PF 4 MG/2 ML VIAL. IVP ONE (15:15)
[2022-02-20] MEDS ORDERED: MORPHINE SULFATE 2 MG/ML INJ. IVP ONE (15:15)
[2022-02-20] MEDS ORDERED: IV NORMAL SALINE 1000ML BAG 1,000 ML IV ONE ×2 (15:15→21:00)
[2022-02-20] MEDS ORDERED: 0.9 % SOD CHL for STERILE FIELD 10 ML DISP.SYRIN. ONE (15:19)
[2022-02-20 15:47] LABS: BASO # 0.1 x10^3/uL (0.0-0.2); BASO % 1 % (0-3); EOS % 0 % (0-3); HEMATOCRIT 43.8 % (39.0-53.0); HEMOGLOBIN 14.3 g/dL (13.0-17.5); LYMPH # 0.4 x10^3/uL (1.0-4.8); LYMPH % 3 % (24-48); MEAN CORPUSCULAR HEMOGLOBIN 28 pg (25-35); MEAN CORPUSCULAR HGB CONC 33 g/dL (31-37); MEAN CORPUSCULAR VOLUME 85 fL (79-100); MONO # 0.7 x10^3/uL (0.0-1.1); MONO % 6 % (0-9); NEUT # 11.2 x10^3/uL (1.8-7.7); NEUT % 90 % (31-73); PLATELET COUNT 285 x10^3/uL (140-400); RED BLOOD COUNT 5.18 x10^6/uL (4.30-5.70); WHITE BLOOD COUNT 12.5 x10^3/uL (4.0-11.0)
[2022-02-20 16:03] LABS: CALCIUM 9.1 mg/dL (8.5-10.1); CREATININE 1.1 mg/dL (0.7-1.3); GFR 64.6; POTASSIUM 4.3 mmol/L (3.5-5.1)
[2022-02-20 16:16] LABS: ALBUMIN 3.6 g/dL (3.4-5.0); MAGNESIUM 2.4 mg/dL (1.8-2.4); TOTAL BILIRUBIN 0.4 mg/dL (0.2-1.0); TOTAL PROTEIN 7.1 g/dL (6.4-8.2)
[2022-02-20] MEDS ORDERED: IOHEXOL 300 MG/ML 100ML VIAL. IV ONE (16:30)
[2022-02-20] MEDS ORDERED: CONTRAST GIVEN. MC PRN (16:30)
[2022-02-20 16:52] LABS: INFLUENZA A PATIENT NEGATIVE (NEGATIVE); INFLUENZA B PATIENT NEGATIVE (NEGATIVE)
--- NOTE | 2022-02-20 17:15 | RAD ---
PQRS Compliance Statement: One or more of the following individualized dose reduction techniques were utilized for this examinat ion: 1. Automated exposure control 2. Adjustment of the mA and/or kV according to patient size 3. Use of iterative reconstruction technique CT abdomen/pelvis with contrast 02/20/2022 4:18 PM INDICATION: Abdominal pain COMPARISON: None available TECHNIQUE: Multiple axial CT images of the abdomen and pelvis were obtained after the intravenous adm inistration of 75 mL Omnipaque 300. Coronal and sagittal reformats are provided. FINDINGS: Moderate centrilobular pulmonary emphysema. Calcified granuloma identified at the right lung base arturo suring 1.0 cm. Spiculated nodular opacities identified within the anterior left lower lobe. Previousl y seen increased FDG activity, only partially profiled as compared to prior examination. Heart size i s within normal limits. Hypoattenuation the hepatic parenchyma suggestive of hepatic steatosis. Adela lithiasis. No adjacent inflammation. Spleen, adrenal glands and pancreas are normal. Abdominal aorta is normal in course and caliber with moderate calcified atheromatous plaque. No pathologically enlarg ed lymph nodes are identified in abdomen and pelvis. There is no free fluid or free intraperitoneal a ir. Moderate left and small right fat-containing inguinal hernias. Moderate diverticulosis. There is a ventral midline abdominal hernia containing nondilated transverse colon. Further inferiorly there i s a left periaortic umbilical hernia containing fat and nondilated small bowel loops. There are mild dilated small bowel loops identified within the left midabdomen which appear fluid-filled measuring u p to 3.8 cm. There is transition: Identified at the level of the left periumbilical hernia. Additiona l small fat-containing subumbilical midline hernias are present. Minimal fluid identified within the left periumbilical ventral hernia sac. Postsurgical changes are identified along the superior pole left kidney, likely from partial nephrect kelechi. Kidneys enhance symmetrically. No suspicious renal mass. No hydronephrosis. No calculi within th e kidneys, ureters or urinary bladder. Urinary bladder is within normal limits given degree of disten tion. Prostate is enlarged measuring 6.5 x 5.8 cm. No suspicious osseous abnormality is identified. F ew scattered sclerotic densities within the osseous structures favor bone islands. IMPRESSION: 1. There is small bowel obstruction or at least partial small bowel obstruction with transition point identified in the left ventral periumbilical hernia. Nondilated small bowel loops are identified wit hin the hernia with minimal adjacent fluid. More proximal dilated small bowel loops are identified an d widely significant edema within mesentery. Colon is normal in caliber with moderate stool burden. 2. Moderate diverticulosis. 3. Nodular airspace disease within the left lower lobe anteriorly appears marginally improved althoug h not completely profiled as compared to prior PET/CT from 01/19/2022. 4. Moderate centrilobular pulmonary emphysema. 5. Prostatomegaly. 6. Cholelithiasis. 7. Postsurgical changes are identified from partial nephrectomy involving the superior pole left kidn ey. No definite recurrent or residual disease identified. Electronically signed by: Alysa Bowens MD (02/20/2022 5:12 PM) [facility]
--- NOTE | 2022-02-20 17:27 | EKG ---
[facility] [address] [place] [address] Test Date: 2022-02-20 Test Time: 17:15:50 Pat Name: AARON TAM Department: Room: Gender: M Technology Sales Consultant: : 1940 Requested By: JENNIFER AMADOR Order Number: [id number] Reading MD: Aries Jackson Measurements Intervals [place] Rate: 86 P: 58 SC: 252 QRS: -23 QRSD: 80 T: 73 QT: 372 QTc: 448 Interpretive Statements SINUS RHYTHM PROLONGED SC INTERVAL LEFTWARD AXIS CONSIDER LEFT VENTRICULAR HYPERTROPHY T ABNORMALITY IN HIGH LATERAL LEADS ABNORMAL ECG RI6.02 No previous ECG available for comparison Electronically Signed On 02-24-2022 21:41:23 CDT by Aries Jackson
--- NOTE | 2022-02-20 17:48 | PHYS DOC ---
Past Medical History Additional Past Medical Histor: LUNG CA RADIATION 02/20/22 Past Surgical History: Appendectomy, Cancer Surgery, Cholecystectomy Additional Past Surgical Histo: KIDNEY CANCER SURGREY, LEFT LOWER LOBECTOMY, Smoking Status: Former Smoker Alcohol Use: Rarely Adult General Chief Complaint Chief Complaint: ABDOMINAL PAIN HPI HPI Patient is a 81 year old male who presents with nausea and vomiting. Symptoms present for the last day or so. Patient has a history of ventral wall hernia which is somewhat larger in size than normal. He is also had some crampy abdominal discomfort. He has not been passing any stool or flatus for the last 24 hours. No blood in his emesis. Denies any chest pain, shortness of breath or fever. No recent trauma. Review of Systems Review of Systems Constitutional: Denies fever Eyes: Denies change in visual acuity or eye pain HENT: Denies sore throat Respiratory: Denies shortness of breath Cardiovascular: Denies chest pain GI: Reports abd pain : Denies dysuria Musculoskeletal: Denies back or extremity injury Integument: Denies rash or skin lesions Neurologic: Denies headache, focal weakness or sensory changes All other systems were reviewed and found to be within normal limits, except as documented in this note. Current Medications Current Medications Current Medications Medications (Trade) Dose Ordered Sig/Navya Start Time Stop Time Status Last Admin Dose Admin Info (CONTRAST GIVEN -- Rx MONITORING) 1 each PRN DAILY PRN 02/20/22 16:30 02/22/22 16:29 Iohexol (Omnipaque 300 Mg/ml) 75 ml 1X ONCE 02/20/22 16:30 02/20/22 16:31 DC 02/20/22 16:22 75 ML Morphine Sulfate (Morphine Sulfate) 2 mg 1X ONCE 02/20/22 15:15 02/20/22 15:29 DC 02/20/22 15:57 2 MG Ondansetron HCl (Zofran) 4 mg 1X ONCE 02/20/22 15:15 02/20/22 15:29 DC 02/20/22 15:56 4 MG Sodium Chloride (NORMAL SALINE FLUSH for STERILE FIELD) 10 ml STK-MED ONCE 02/20/22 15:19 02/20/22 15:19 DC Allergies Allergies Allergies Coded Allergies Type Severity Reaction Last Updated Verified No Known Drug Allergies 08/04/20 No Physical Exam Physical Exam Constitutional: Well developed, well nourished, no acute distress, non-toxic appearance. HENT: Normocephalic, atraumatic, bilateral external ears normal, mucosa moist, nose normal. Eyes: EOMI, conjunctiva normal, no discharge. Neck: Normal range of motion, supple, no stridor, no meningeal signs. Cardiovascular: Regular rate and rhythm Lungs & Thorax: Bilateral breath sounds clear to auscultation Abdomen: Soft, generalized tenderness, periumbilical hernia which was reducible only with great difficulty. Skin: Warm, dry, no erythema, no rash. Extremities: No tenderness, no cyanosis, no clubbing, ROM intact, no edema. Neurologic: Alert and oriented, normal motor function, normal sensory function, no focal deficits noted. Psychologic: Affect normal, judgement normal, mood normal. Current Patient Data Vital Signs Vital Signs Date Time Temp Pulse Resp B/P (MAP) Pulse Ox O2 Delivery O2 Flow Rate FiO2 02/20/22 15:57 18 94 Room Air 02/20/22 15:10 80 168/75 (106) 02/20/22 14:42 98.0 98.0 Lab Values Laboratory Tests Test 02/20/22 15:33 02/20/22 16:02 White Blood Count 12.5 x10^3/uL (4.0-11.0) H Red Blood Count 5.18 x10^6/uL (4.30-5.70) Hemoglobin 14.3 g/dL (13.0-17.5) Hematocrit 43.8 % (39.0-53.0) Mean Corpuscular Volume 85 fL (79-100) Mean Corpuscular Hemoglobin 28 pg (25-35) Mean Corpuscular Hemoglobin Concent 33 g/dL (31-37) Red Cell Distribution Width 16.0 % (11.5-14.5) H Platelet Count 285 x10^3/uL (140-400) Neutrophils (%) (Auto) 90 % (31-73) H Lymphocytes (%) (Auto) 3 % (24-48) L Monocytes (%) (Auto) 6 % (0-9) Eosinophils (%) (Auto) 0 % (0-3) Basophils (%) (Auto) 1 % (0-3) Neutrophils # (Auto) 11.2 x10^3/uL (1.8-7.7) H Lymphocytes # (Auto) 0.4 x10^3/uL (1.0-4.8) L Monocytes # (Auto) 0.7 x10^3/uL (0.0-1.1) Eosinophils # (Auto) 0.0 x10^3/uL (0.0-0.7) Basophils # (Auto) 0.1 x10^3/uL (0.0-0.2) Sodium Level 140 mmol/L (136-145) Potassium Level 4.3 mmol/L (3.5-5.1) Chloride Level 102 mmol/L (98-107) Carbon Dioxide Level 29 mmol/L (21-32) Anion Gap 9 (6-14) Blood Urea Nitrogen 16 mg/dL (8-26) Creatinine 1.1 mg/dL (0.7-1.3) Estimated GFR (Cockcroft-Gault) 64.6 BUN/Creatinine Ratio 15 (6-20) Glucose Level 143 mg/dL (70-99) H Lactic Acid Level 1.9 mmol/L (0.4-2.0) Calcium Level 9.1 mg/dL (8.5-10.1) Magnesium Level 2.4 mg/dL (1.8-2.4) Total Bilirubin 0.4 mg/dL (0.2-1.0) Aspartate Amino Transferase (AST) 16 U/L (15-37) Alanine Aminotransferase (ALT) 20 U/L (16-63) Alkaline Phosphatase 76 U/L (46-116) Troponin I High Sensitivity 10 ng/L (4-75) Total Protein 7.1 g/dL (6.4-8.2) Albumin 3.6 g/dL (3.4-5.0) Albumin/Globulin Ratio 1.0 (1.0-1.7) Lipase 29 U/L (73-393) L Influenza Type A Antigen Negative (NEGATIVE) Influenza Type B Antigen Negative (NEGATIVE) SARS-CoV-2 Antigen (Rapid) Negative (NEGATIVE) Laboratory Tests 02/20/22 15:33 Laboratory Tests 02/20/22 15:33 EKG EKG Told EKG demonstrates sinus rhythm with a rate of 86. OR, QRS and QT corrected are 252, 80 and [address] segment elevation or depression. [] Radiology/Procedures Radiology/Procedures [] Impressions: PATIENT: ARTURO TAMCOUNT: [id number]#: [id number] : 1940 LOCATION: ER AGE: 81 SEX: M EXAM STATUS: REG ER ORD. PHYSICIAN: JENNIFER AMADOR MD REASON: Abdomen pain PROCEDURE: CT ABD PELV W/ IV CONTRST ONLY PQRS Compliance Statement: One or more of the following individualized dose reduction techniques were utilized for this examination: 1. Automated exposure control 2. Adjustment of the mA and/or kV according to patient size 3. Use of iterative reconstruction technique CT abdomen/pelvis with contrast 02/20/2022 4:18 PM INDICATION: Abdominal pain COMPARISON: None available TECHNIQUE: Multiple axial CT images of the abdomen and pelvis were obtained after the intravenous administration of 75 mL Omnipaque 300. Coronal and sagittal reformats are provided. FINDINGS: Moderate centrilobular pulmonary emphysema. Calcified granuloma identified at the right lung base measuring 1.0 cm. Spiculated nodular opacities identified within the anterior left lower lobe. Previously seen increased FDG activity, only partially profiled as compared to prior examination. Heart size is within normal limits. Hypoattenuation the hepatic parenchyma suggestive of hepatic steatosis. Cholelithiasis. No adjacent inflammation. Spleen, adrenal glands and pancreas are normal. Abdominal aorta is normal in course and caliber with moderate calcified atheromatous plaque. No pathologically enlarged lymph nodes are identified in abdomen and pelvis. There is no free fluid or free intraperitoneal air. Moderate left and small right fat-containing inguinal shilpa ias. Moderate diverticulosis. There is a ventral midline abdominal hernia containing nondilated transverse colon. Further inferiorly there is a left periaortic umbilical hernia containing fat and nondilated small bowel loops. There are mild dilated small bowel loops identified within the left midabdomen which appear fluid-filled measuring up to 3.8 cm. There is transition: Identified at the level of the left periumbilical hernia. Additional small fat- containing subumbilical midline hernias are present. Minimal fluid identified within the left periumbilical ventral hernia sac. Postsurgical changes are identified along the superior pole left kidney, likely from partial nephrectomy. Kidneys enhance symmetrically. No suspicious renal mass. No hydronephrosis. No calculi within the kidneys, ureters or urinary bladder. Urinary bladder is within normal limits given degree of distention. Prostate is enlarged measuring 6.5 x 5.8 cm. No suspicious osseous abnormality is identified. Few scattered sclerotic densities within the osseous structures favor bone islands. IMPRESSION: 1. There is small bowel obstruction or at least partial small bowel obstruction with transition point identified in the left ventral periumbilical hernia. Nondilated small bowel loops are identified within the hernia with minimal adjacent fluid. More proximal dilated small bowel loops are identified and widely significant edema within mesentery. Colon is normal in caliber with moderate stool burden. 2. Moderate diverticulosis. 3. Nodular airspace disease within the left lower lobe anteriorly appears marginally improved although not completely profiled as compared to prior PET/CT from 01/19/2022. 4. Moderate centrilobular pulmonary emphysema. 5. Prostatomegaly. 6. Cholelithiasis. 7. Postsurgical changes are identified from partial nephrectomy involving the superior pole left kidney. No definite recurrent or residual disease identified. Electronically signed by: Gayle Parisi MD (02/20/2022 5:12 PM) [facility] DICTATED and SIGNED BY: GAYLE PARISI MD DATE: 02/20/221701 Course & Med Decision Making Course & Med Decision Making Pertinent Labs and Imaging studies reviewed. (See chart for details) [] This 81-year-old male with a small bowel obstruction. This is likely due to incarcerated hernia. This was reduced with quite a bit of difficulty. We will keep the patient in the hospital and place NG tube if he does not begin to pass gas soon. We will continue with n.p.o. status and IV hydration, surgical consultation, patient is in stable guarded condition. Dragon Disclaimer Dragon Disclaimer This electronic medical record was generated, in whole or in part, using a voice recognition dictation system. Departure Departure Impression: Primary Impression: Small bowel obstruction Additional Impression: Incarcerated hernia Disposition: ADMITTED INPATIENT Condition: STABLE Referrals: IRINA RIVER MD (PCP) Problem Qualifiers JENNIFER AMADOR MD Feb 20, 2022 17:48
[2022-02-20 19:00] VITALS: BP 169/79
--- NOTE | 2022-02-20 19:50 | NUR ---
Received patient to room 428 per cart from ER. Admitting diagnosis: SBO. Patient states he was sneezing yesterday and his hernia was protruding and causing nausea and vomiting and constipation. ER doctor was able to reduce hernia and nausea and vomiting has stopped. Pain was a 9/10 and now patient says he has no pain. Patient is alert and oriented x4. Patient has NKA. Patient has recurrent lung cancer and is currently receiving radiation treatments. Patient does c/o heartburn but denies abdominal pain at this time. Jaime continue to monitor.
--- NOTE | 2022-02-20 20:23 | PDOC1 ---
History and Physical Date of Admission Date of Admission DATE: 02/20/22 TIME: 20:05 Identification/Chief Complaint Chief Complaint Abdominal pain Source Source: Patient History of Present Illness History of Present Illness Patient 81-year-old male with past medical history left lung cancer, BPH, GERD, hypothyroidism, who presents to the ED with complaints of abdominal pain since yesterday. He also reports nausea and vomiting that began sometime this morning. Patient has a surgical history of colectomy with resulting ventral wall hernia. He says he has not been passing gas or any stool for the past 2-3 days. He denies any chest pain or shortness of breath. In the in the ER our ED attending was able to reduce his ventral hernia with significant improvement in his pain, nausea, and vomiting. At the time my evaluation his symptoms have largely resolved. Labs admission showed WBC 12.5, CBG 145. No symptoms have largely improved, I will still admit patient for observation overnight. Past Medical History Past Medical History Left lung cancer, GERD, BPH, hypothyroidism, DM2, irregular heart rhythm, kidney cancer Past Surgical History Past Surgical History Partial colectomy, appendectomy Family History Family History Denies significant family history Social History Smoke: Quit ALCOHOL: occassional Drugs: None Current Problem List Problem List Problems Medical Problems: (1) Incarcerated hernia Status: Acute (2) Small bowel obstruction Status: Acute Current Medications Current Medications Current Medications Morphine Sulfate (Morphine Sulfate) 2 mg 1X ONCE IVP Last administered on 02/20/22at 15:57; Start 02/20/22 at 15:15; Stop 02/20/22 at 15:29; Status DC Sodium Chloride 1,000 ml @ 1,000 mls/hr 1X ONCE IV Last administered on 02/20/22at 15:57; Start 02/20/22 at 15:15; Stop 02/20/22 at 16:14; Status DC Ondansetron HCl (Zofran) 4 mg 1X ONCE IVP Last administered on 02/20/22at 15:56; Start 02/20/22 at 15:15; Stop 02/20/22 at 15:29; Status DC Sodium Chloride (NORMAL SALINE FLUSH for STERILE FIELD) 10 ml STK-MED ONCE .ROUTE ; Start 02/20/22 at 15:19; Stop 02/20/22 at 15:19; Status DC Iohexol (Omnipaque 300 Mg/ml) 75 ml 1X ONCE IV Last administered on 02/20/22at 16:22; Start 02/20/22 at 16:30; Stop 02/20/22 at 16:31; Status DC Info (CONTRAST GIVEN -- Rx MONITORING) 1 each PRN DAILY PRN MC SEE COMMENTS; Start 02/20/22 at 16:30; Stop 02/22/22 at 16:29 Active Scripts Active Reported Protonix (Pantoprazole Sodium) 40 Mg Tablet.dr 40 Mg PO DAILYAC Compazine (Prochlorperazine Maleate) 10 Mg Tablet 10 Mg PO DAILY Flomax (Tamsulosin Hcl) 0.4 Mg Cap.er.24h 0.4 Mg PO DAILY Diltiazem 24Hr Cd (Diltiazem HCl) 240 Mg Cap.er.24h 240 Mg PO HS Levothyroxine Sodium 50 Mcg Tablet 1 Tab PO DAILY Finasteride 5 Mg Tablet 1 Tab PO DAILY D3-50 (Cholecalciferol (Vitamin D3)) 50,000 Unit Capsule 1 Cap PO WEEKLY 28 Days Lovastatin 20 Mg Tablet 20 Mg PO HS Metformin Hcl 1,000 Mg Tablet 1,000 Mg PO DAILYWBKFT Fenofibrate (Fenofibrate Nanocrystallized) 145 Mg Tablet 160 Mg PO DAILY Allergies Allergies: Coded Allergies: No Known Drug Allergies (Unverified , 08/04/20) ROS Review of System GENERAL: No history of weight change, weakness or fevers. SKIN: No bruising, hair changes or rashes. EYES: No blurred, double or loss of vision. NOSE AND THROAT: No history of nosebleeds, hoarseness or sore throat. HEART: Denies chest pain, denies palpitations. LUNGS: Denies cough, hemoptysis, wheezing or shortness of breath. GASTROINTESTINAL: Denies nausea, vomiting, abdominal pain. GENITOURINARY: Denies dysuria, frequency, urgency, hematuria. NEUROLOGIC: Denies history of numbness, tingling, tremor or weakness. PSYCHIATRIC: Denies anxiety, denies depression. ENDOCRINE: No history of heat or cold intolerance, polyuria or polydipsia. EXTREMITIES: Denies muscle weakness, joint pain, pain on walking or stiffness. Physical Exam Physical Exam General: Alert, Oriented X3, Cooperative, No acute distress HEENT: PERRLA, EOMI Lungs: Clear to auscultation, Normal air movement Heart: RRR, no murmurs Cardiovascular: S1, S2 Abdomen: Large ventral hernia, hyperactive bowel sounds. Soft, No tenderness Extremities: No clubbing, No cyanosis Skin: No rashes, No significant lesion Neuro: Normal speech, Normal tone, Sensation intact Psych/Mental Status: Mental status NL, Mood NL Vitals Vitals Vital Signs Date Time Temp Pulse Resp B/P (MAP) Pulse Ox O2 Delivery O2 Flow Rate FiO2 02/20/22 18:30 86 10 170/81 (110) 91 Room Air 02/20/22 14:42 98.0 98.0 Labs Labs Laboratory Tests Test 02/20/22 15:33 02/20/22 16:02 White Blood Count 12.5 x10^3/uL (4.0-11.0) Red Blood Count 5.18 x10^6/uL (4.30-5.70) Hemoglobin 14.3 g/dL (13.0-17.5) Hematocrit 43.8 % (39.0-53.0) Mean Corpuscular Volume 85 fL (79-100) Mean Corpuscular Hemoglobin 28 pg (25-35) Mean Corpuscular Hemoglobin Concent 33 g/dL (31-37) Red Cell Distribution Width 16.0 % (11.5-14.5) Platelet Count 285 x10^3/uL (140-400) Neutrophils (%) (Auto) 90 % (31-73) Lymphocytes (%) (Auto) 3 % (24-48) Monocytes (%) (Auto) 6 % (0-9) Eosinophils (%) (Auto) 0 % (0-3) Basophils (%) (Auto) 1 % (0-3) Neutrophils # (Auto) 11.2 x10^3/uL (1.8-7.7) Lymphocytes # (Auto) 0.4 x10^3/uL (1.0-4.8) Monocytes # (Auto) 0.7 x10^3/uL (0.0-1.1) Eosinophils # (Auto) 0.0 x10^3/uL (0.0-0.7) Basophils # (Auto) 0.1 x10^3/uL (0.0-0.2) Sodium Level 140 mmol/L (136-145) Potassium Level 4.3 mmol/L (3.5-5.1) Chloride Level 102 mmol/L (98-107) Carbon Dioxide Level 29 mmol/L (21-32) Anion Gap 9 (6-14) Blood Urea Nitrogen 16 mg/dL (8-26) Creatinine 1.1 mg/dL (0.7-1.3) Estimated GFR (Cockcroft-Gault) 64.6 BUN/Creatinine Ratio 15 (6-20) Glucose Level 143 mg/dL (70-99) Lactic Acid Level 1.9 mmol/L (0.4-2.0) Calcium Level 9.1 mg/dL (8.5-10.1) Magnesium Level 2.4 mg/dL (1.8-2.4) Total Bilirubin 0.4 mg/dL (0.2-1.0) Aspartate Amino Transf (AST/SGOT) 16 U/L (15-37) Alanine Aminotransferase (ALT/SGPT) 20 U/L (16-63) Alkaline Phosphatase 76 U/L (46-116) Troponin I High Sensitivity 10 ng/L (4-75) Total Protein 7.1 g/dL (6.4-8.2) Albumin 3.6 g/dL (3.4-5.0) Albumin/Globulin Ratio 1.0 (1.0-1.7) Lipase 29 U/L (73-393) Influenza Type A Antigen Negative (NEGATIVE) Influenza Type B Antigen Negative (NEGATIVE) SARS-CoV-2 Antigen (Rapid) Negative (NEGATIVE) Laboratory Tests Test 02/20/22 15:33 02/20/22 16:02 White Blood Count 12.5 x10^3/uL (4.0-11.0) Red Blood Count 5.18 x10^6/uL (4.30-5.70) Hemoglobin 14.3 g/dL (13.0-17.5) Hematocrit 43.8 % (39.0-53.0) Mean Corpuscular Volume 85 fL (79-100) Mean Corpuscular Hemoglobin 28 pg (25-35) Mean Corpuscular Hemoglobin Concent 33 g/dL (31-37) Red Cell Distribution Width 16.0 % (11.5-14.5) Platelet Count 285 x10^3/uL (140-400) Neutrophils (%) (Auto) 90 % (31-73) Lymphocytes (%) (Auto) 3 % (24-48) Monocytes (%) (Auto) 6 % (0-9) Eosinophils (%) (Auto) 0 % (0-3) Basophils (%) (Auto) 1 % (0-3) Neutrophils # (Auto) 11.2 x10^3/uL (1.8-7.7) Lymphocytes # (Auto) 0.4 x10^3/uL (1.0-4.8) Monocytes # (Auto) 0.7 x10^3/uL (0.0-1.1) Eosinophils # (Auto) 0.0 x10^3/uL (0.0-0.7) Basophils # (Auto) 0.1 x10^3/uL (0.0-0.2) Sodium Level 140 mmol/L (136-145) Potassium Level 4.3 mmol/L (3.5-5.1) Chloride Level 102 mmol/L (98-107) Carbon Dioxide Level 29 mmol/L (21-32) Anion Gap 9 (6-14) Blood Urea Nitrogen 16 mg/dL (8-26) Creatinine 1.1 mg/dL (0.7-1.3) Estimated GFR (Cockcroft-Gault) 64.6 BUN/Creatinine Ratio 15 (6-20) Glucose Level 143 mg/dL (70-99) Lactic Acid Level 1.9 mmol/L (0.4-2.0) Calcium Level 9.1 mg/dL (8.5-10.1) Magnesium Level 2.4 mg/dL (1.8-2.4) Total Bilirubin 0.4 mg/dL (0.2-1.0) Aspartate Amino Transf (AST/SGOT) 16 U/L (15-37) Alanine Aminotransferase (ALT/SGPT) 20 U/L (16-63) Alkaline Phosphatase 76 U/L (46-116) Troponin I High Sensitivity 10 ng/L (4-75) Total Protein 7.1 g/dL (6.4-8.2) Albumin 3.6 g/dL (3.4-5.0) Albumin/Globulin Ratio 1.0 (1.0-1.7) Lipase 29 U/L (73-393) Influenza Type A Antigen Negative (NEGATIVE) Influenza Type B Antigen Negative (NEGATIVE) SARS-CoV-2 Antigen (Rapid) Negative (NEGATIVE) Images Images PATIENT: ARTURO TAMCOUNT: [id number] : 1940 LOCATION: ER AGE: 81 SEX: M EXAM STATUS: REG ER ORD. PHYSICIAN: JENNIFER AMADOR MD REASON: Abdomen pain PROCEDURE: CT ABD PELV W/ IV CONTRST ONLY PQRS Compliance Statement: One or more of the following individualized dose reduction techniques were utilized for this examination: 1. Automated exposure control 2. Adjustment of the mA and/or kV according to patient size 3. Use of iterative reconstruction technique CT abdomen/pelvis with contrast 02/20/2022 4:18 PM INDICATION: Abdominal pain COMPARISON: None available TECHNIQUE: Multiple axial CT images of the abdomen and pelvis were obtained after the intravenous administration of 75 mL Omnipaque 300. Coronal and sagittal reformats are provided. FINDINGS: Moderate centrilobular pulmonary emphysema. Calcified granuloma identified at the right lung base measuring 1.0 cm. Spiculated nodular opacities identified within the anterior left lower lobe. Previously seen increased FDG activity, only partially profiled as compared to prior examination. Heart size is within normal limits. Hypoattenuation the hepatic parenchyma suggestive of hepatic steatosis. Cholelithiasis. No adjacent inflammation. Spleen, adrenal glands and pancreas are normal. Abdominal aorta is normal in course and caliber with moderate calcified atheromatous plaque. No pathologically enlarged lymph nodes are identified in abdomen and pelvis. There is no free fluid or free intraperitoneal air. Moderate left and small right fat-containing inguinal hernias. Moderate diverticulosis. There is a ventral midline abdominal hernia containing nondilated transverse colon. Further inferiorly there is a left periaortic umbilical hernia containing fat and nondilated small bowel loops. There are mild dilated small bowel loops identified within the left midabdomen which appear fluid-filled measuring up to 3.8 cm. There is transition: Identified at the level of the left periumbilical hernia. Additional small fat-containing subumbilical midline hernias are present. Minimal fluid identified within the left periumbilical ventral hernia sac. Postsurgical changes are identified along the superior pole left kidney, likely from partial nephrectomy. Kidneys enhance symmetrically. No suspicious renal mass. No hydronephrosis. No calculi within the kidneys, ureters or urinary bladder. Urinary bladder is within normal limits given degree of distention. Prostate is enlarged measuring 6.5 x 5.8 cm. No suspicious osseous abnormality is identified. Few scattered sclerotic densities within the osseous structures favor bone islands. IMPRESSION: 1. There is small bowel obstruction or at least partial small bowel obstruction with transition point identified in the left ventral periumbilical hernia. Nondilated small bowel loops are identified within the hernia with minimal adjacent fluid. More proximal dilated small bowel loops are identified and widely significant edema within mesentery. Colon is normal in caliber with moderate stool burden. 2. Moderate diverticulosis. 3. Nodular airspace disease within the left lower lobe anteriorly appears marginally improved although not completely profiled as compared to prior PET/CT from 01/19/2022. 4. Moderate centrilobular pulmonary emphysema. 5. Prostatomegaly. 6. Cholelithiasis. 7. Postsurgical changes are identified from partial nephrectomy involving the superior pole left kidney. No definite recurrent or residual disease identified. VTE Prophylaxis Ordered VTE Prophylaxis Devices: No VTE Pharmacological Prophylaxi: Yes Assessment/Plan Assessment/Plan Partial small bowel obstruction History lung cancer GERD BPH DM2 Hypothyroidism Plan: After reduction of incarcerated hernia in the ED, patient states he feels better. Still not yet passing stool or flatus. Discussed with patient that if his nausea and vomiting returns we will need to decompress his bowels with NG tube, and patient conveyed understanding. We will continue symptomatic management and admit for observation Keep n.p.o. tonight and advance diet as tolerated tomorrow morning Resume home medications FEN - n.p.o. PPX - Lovenox FULL CODE Dispo - inpatient for above. Patient names his daughte (Cindy Prado) as surrogate decision-maker. Justifications for Admission Other Justification SONIA ANGLIN MD Feb 20, 2022 20:23
[2022-02-20] MEDS ORDERED: ACETAMINOPHEN 325 MG TABLET. PO PRN (20:30)
[2022-02-20] MEDS ORDERED: HYDROcodone/APAP 5/325MG 1 TAB TABLET PO PRN (20:30)
[2022-02-20] MEDS ORDERED: ZOLPIDEM 5 MG TABLET. PO PRN (20:30)
[2022-02-20] MEDS ORDERED: CALCIUM CARBONATE 500 MG TAB.CHEW PO PRN (20:30)
[2022-02-20] MEDS ORDERED: MAG HYDROX/ALUMINUM HYD/SIMETH 30 ML ORAL.SUSP PO PRN (20:30)
[2022-02-20] MEDS ORDERED: ONDANSETRON PF 4 MG/2 ML VIAL. IVP PRN (20:30)
[2022-02-20] MEDS: HEPARIN for SUB-Q USE 5,000 UNIT/ML VIAL. SQ SCH (22:02)
[2022-02-20 23:01] VITALS: BP 169/72
[2022-02-21 01:54] LABS: BACTERIA,URINE 0 /HPF (0-FEW)
[2022-02-21 01:55] LABS: RBC,URINE RARE /HPF (0-2)
[2022-02-21 03:00] VITALS: BP 155/82
[2022-02-21 07:00] VITALS: BP 153/85
[2022-02-21] MEDS: HEPARIN for SUB-Q USE 5,000 UNIT/ML VIAL. SQ SCH (09:00)
[2022-02-21 09:15] LABS: BASO % 0 % (0-3); EOS # 0.1 x10^3/uL (0.0-0.7); EOS % 2 % (0-3); HEMATOCRIT 39.3 % (39.0-53.0); HEMOGLOBIN 12.6 g/dL (13.0-17.5); LYMPH # 0.5 x10^3/uL (1.0-4.8); LYMPH % 8 % (24-48); MEAN CORPUSCULAR HEMOGLOBIN 27 pg (25-35); MEAN CORPUSCULAR HGB CONC 32 g/dL (31-37); MEAN CORPUSCULAR VOLUME 85 fL (79-100); MONO # 0.6 x10^3/uL (0.0-1.1); MONO % 10 % (0-9); NEUT # 4.9 x10^3/uL (1.8-7.7); NEUT % 80 % (31-73); PLATELET COUNT 234 x10^3/uL (140-400); RED BLOOD COUNT 4.61 x10^6/uL (4.30-5.70); RED CELL DISTRIBUTION WIDTH 16.5 % (11.5-14.5); WHITE BLOOD COUNT 6.2 x10^3/uL (4.0-11.0)
[2022-02-21] MEDS ORDERED: CYCL10TA19 PO (10:29)
[2022-02-21] MEDS ORDERED: HYDR-2761 PO (10:29)
[2022-02-21] MEDS ORDERED: ZOLP5TAB PO (10:29)
--- NOTE | 2022-02-21 10:59 | NUR ---
Spoke to Dr. Queen - received orders to start clear liquid diet.
[2022-02-21 11:00] VITALS: BP 161/75
--- NOTE | 2022-02-21 11:50 | PDOC ---
[employer] PROGRESS NOTE Date of Service DOS: DATE: 02/21/22 TIME: 11:49 Chief Complaint Chief Complaint Resolving small bowel obstruction Ventral abdominal hernia History of lung cancer on chemo History of Present Illness History of Present Illness 02/21/2022 Patient seen and examined He is doing much better states he passed a lot of gas and feels better Discussed with case management Discussed with RN I consulted general surgery they left for the day so they are okay with advancing his diet and if he can tolerate that we plan to discharge with close outpatient follow Vitals/I&O Vitals/I&O: Vital Signs Date Time Temp Pulse Resp B/P (MAP) Pulse Ox O2 Delivery O2 Flow Rate FiO2 02/21/22 11:00 98.5 89 18 161/75 (103) 95 Room Air 98.5 I & O 02/20/22 02/20/22 02/21/22 15:00 23:00 07:00 Intake Total 1000 ml Balance 1000 ml Physical Exam General: Alert Heart: Regular rate Lungs: Clear, Other (Somewhat diminished breath sounds) Abdomen: Normal bowel sounds, Other (He has a large ventral hernia this is chronic for him) Extremities: No clubbing Skin: No rashes Labs Labs: Laboratory Tests Test 02/20/22 15:33 02/20/22 16:02 02/20/22 21:06 02/21/22 01:40 White Blood Count 12.5 x10^3/uL (4.0-11.0) Red Blood Count 5.18 x10^6/uL (4.30-5.70) Hemoglobin 14.3 g/dL (13.0-17.5) Hematocrit 43.8 % (39.0-53.0) Mean Corpuscular Volume 85 fL (79-100) Mean Corpuscular Hemoglobin 28 pg (25-35) Mean Corpuscular Hemoglobin Concent 33 g/dL (31-37) Red Cell Distribution Width 16.0 % (11.5-14.5) Platelet Count 285 x10^3/uL (140-400) Neutrophils (%) (Auto) 90 % (31-73) Lymphocytes (%) (Auto) 3 % (24-48) Monocytes (%) (Auto) 6 % (0-9) Eosinophils (%) (Auto) 0 % (0-3) Basophils (%) (Auto) 1 % (0-3) Neutrophils # (Auto) 11.2 x10^3/uL (1.8-7.7) Lymphocytes # (Auto) 0.4 x10^3/uL (1.0-4.8) Monocytes # (Auto) 0.7 x10^3/uL (0.0-1.1) Eosinophils # (Auto) 0.0 x10^3/uL (0.0-0.7) Basophils # (Auto) 0.1 x10^3/uL (0.0-0.2) Sodium Level 140 mmol/L (136-145) Potassium Level 4.3 mmol/L (3.5-5.1) Chloride Level 102 mmol/L (98-107) Carbon Dioxide Level 29 mmol/L (21-32) Anion Gap 9 (6-14) Blood Urea Nitrogen 16 mg/dL (8-26) Creatinine 1.1 mg/dL (0.7-1.3) Estimated GFR (Cockcroft-Gault) 64.6 BUN/Creatinine Ratio 15 (6-20) Glucose Level 143 mg/dL (70-99) Lactic Acid Level 1.9 mmol/L (0.4-2.0) Calcium Level 9.1 mg/dL (8.5-10.1) Magnesium Level 2.4 mg/dL (1.8-2.4) Total Bilirubin 0.4 mg/dL (0.2-1.0) Aspartate Amino Transf (AST/SGOT) 16 U/L (15-37) Alanine Aminotransferase (ALT/SGPT) 20 U/L (16-63) Alkaline Phosphatase 76 U/L (46-116) Troponin I High Sensitivity 10 ng/L (4-75) Total Protein 7.1 g/dL (6.4-8.2) Albumin 3.6 g/dL (3.4-5.0) Albumin/Globulin Ratio 1.0 (1.0-1.7) Lipase 29 U/L (73-393) Influenza Type A Antigen Negative (NEGATIVE) Influenza Type B Antigen Negative (NEGATIVE) SARS-CoV-2 Antigen (Rapid) Negative (NEGATIVE) Glucose (Fingerstick) 145 mg/dL (70-99) Urine Collection Type Unknown Urine Color (Auto) Light yellow Urine Turbidity Clear Urine pH (Auto) 6.5 (<5.0-8.0) Urine Specific [place] 1.031 (1.000-1.030) Urine Protein (Auto) Negative mg/dL (Negative) Urine Glucose (Auto)(UA) Negative mg/dL (Negative) Urine Ketones (Auto) Negative mg/dL (Negative) Urine Blood (Auto) Negative (Negative) Urine Nitrite Negative (Negative) Urine Bilirubin (Auto) Negative (Negative) Urine Urobilinogen (Auto) Normal mg/dL (Normal) Urine Leukocyte Esterase (Auto) Negative (Negative) Urine RBC Rare /HPF (0-2) Urine WBC 1-4 /HPF (0-4) Urine Squamous Epithelial Cells Few /LPF Urine Bacteria 0 /HPF (0-FEW) Urine Mucus Slight /LPF Test 02/21/22 07:09 02/21/22 09:00 02/21/22 11:39 Glucose (Fingerstick) 107 mg/dL (70-99) 118 mg/dL (70-99) White Blood Count 6.2 x10^3/uL (4.0-11.0) Red Blood Count 4.61 x10^6/uL (4.30-5.70) Hemoglobin 12.6 g/dL (13.0-17.5) Hematocrit 39.3 % (39.0-53.0) Mean Corpuscular Volume 85 fL (79-100) Mean Corpuscular Hemoglobin 27 pg (25-35) Mean Corpuscular Hemoglobin Concent 32 g/dL (31-37) Red Cell Distribution Width 16.5 % (11.5-14.5) Platelet Count 234 x10^3/uL (140-400) Neutrophils (%) (Auto) 80 % (31-73) Lymphocytes (%) (Auto) 8 % (24-48) Monocytes (%) (Auto) 10 % (0-9) Eosinophils (%) (Auto) 2 % (0-3) Basophils (%) (Auto) 0 % (0-3) Neutrophils # (Auto) 4.9 x10^3/uL (1.8-7.7) Lymphocytes # (Auto) 0.5 x10^3/uL (1.0-4.8) Monocytes # (Auto) 0.6 x10^3/uL (0.0-1.1) Eosinophils # (Auto) 0.1 x10^3/uL (0.0-0.7) Basophils # (Auto) 0.0 x10^3/uL (0.0-0.2) Assessment and Plan Assessmemt and Plan Problems Medical Problems: (1) Incarcerated hernia Status: Acute (2) Small bowel obstruction Status: Acute Resolving small bowel obstruction Ventral abdominal hernia History of lung cancer on chemo Plan We plan to advance his diet and if he tolerates that discharge see dictation Comment Review of Relevant I have reviewed the following items nicky (where applicable) has been applied. Medications: Current Medications Medications (Trade) Dose Ordered Sig/Navya Route PRN Reason Start Time Stop Time Status Last Admin Dose Admin Morphine Sulfate (Morphine Sulfate) 2 mg 1X ONCE IVP 02/20/22 15:15 02/20/22 15:29 DC 02/20/22 15:57 Sodium Chloride 1,000 ml @ 1,000 mls/hr 1X ONCE IV 02/20/22 15:15 02/20/22 16:14 DC 02/20/22 15:57 Ondansetron HCl (Zofran) 4 mg 1X ONCE IVP 02/20/22 15:15 02/20/22 15:29 DC 02/20/22 15:56 Iohexol (Omnipaque 300 Mg/ml) 75 ml 1X ONCE IV 02/20/22 16:30 02/20/22 16:31 DC 02/20/22 16:22 Sodium Chloride 1,000 ml @ 100 mls/hr 1X ONCE IV 02/20/22 21:00 02/21/22 06:59 DC 02/20/22 21:50 Al Hydroxide/Mg Hydroxide (Mylanta Plus Xs) 30 ml PRN Q3HRS PRN PO HEARTBURN / GAS 02/20/22 20:30 02/20/22 21:57 Heparin Sodium (Porcine) (Heparin Sodium) 5,000 unit Q12HR SQ 02/20/22 21:00 02/21/22 09:00 Justifications for Admission Other Justification TONG CORTEZ III DO Feb 21, 2022 11:50
--- NOTE | 2022-02-21 12:00 | DS ---
DATE OF DISCHARGE: 02/21/2022 ADMITTING DIAGNOSIS: Possible small-bowel obstruction. DISCHARGE DIAGNOSES: Resolving small-bowel obstruction, history of lung cancer, on chemotherapy, history of chronic ventral abdominal hernia, gastroesophageal reflux disease, benign prostatic hypertrophy, hypothyroidism, diabetes, irregular heart rhythm and kidney cancer. CONSULTS: General Surgery. PROCEDURES: None. HOSPITAL COURSE: The patient is a pleasant middle-aged male who presented with abdominal pain, was noted to have some abnormal imaging, suspicious for a small-bowel obstruction. He states he has a chronic ventral hernia and indeed clinically, he has got a large ventral hernia. He states he sneezed a few times and after that it seemed to cause hernia pain. He developed some nausea. He presented to the ER. We admitted him. We did give him p.r.n. Zofran, IV fluids and over the next 24 hours, slowly his symptoms have resolved. Today, I saw him and I examined him, he is wanting to go home. I did put a consult in General Surgery, but they have left for the day, they are agreeable that if we could advance his diet and get him home, then they could see him in their office. We plan to discharge if he can tolerate a diet this afternoon. DISPOSITION: Home. ACTIVITY: As tolerated. DIET: Low sodium. MEDICATIONS: Please see the MRAD. Hydrocodone 5/325 one q.6 hours p.r.n., Ambien 5 at bedtime, vitamin D, Cardizem CD 240 a day, fenofibrate 160 daily, finasteride 5 daily, Synthroid 50 daily, lovastatin 20 a day, metformin 1000 daily with breakfast, Protonix 40 a day, Compazine 10 q.i.d. p.r.n., Flomax 0.4 daily. TOTAL TIME: [address]: Mervin TID: [id number]
[2022-02-21] MEDS ORDERED: POLYETHYLENE GLYCOL 3350 17 GM PACKET. PO SCH (14:15)
[2022-02-21 15:00] VITALS: BP 176/79
[2022-02-21] MEDS ORDERED: HEPARIN PF 500 UNIT/5 ML DISP.SYRIN. IVP ONE (16:15)
--- NOTE | 2022-02-21 16:32 | NUR ---
PT DISCHARGED HOME WITH SELF CARE. DISCHARGE INSTRUCTIONS AND PRESCRIPTIONS DISCUSSED WITH PATIENT AND DAUGHTER. PORT DEACCESSED. PT PACKED BELONGINGS ON HIS OWN. ASSISTED TO WHEELCHAIR AND WAS SECURED IN CAR
== END 2022-02-21 16:35 | disposition home or self-care (01) ==
LOC: ER 14:08 → 4 NORTH 18:00 → INTOOBSV 18:00
PROVIDERS: ADMIT Family Medicine; ATTEND Family Medicine
DX: K56.699 Other intestinal obstruction unspecified as to partial versus complete obstruction (principal); Z20.822 Contact with and (suspected) exposure to COVID-19; K42.0 Umbilical hernia with obstruction, without gangrene; K57.90 Diverticulosis of intestine, part unspecified, without perforation or abscess without bleeding; N40.1 Benign prostatic hyperplasia with lower urinary tract symptoms; J43.9 Emphysema, unspecified; E11.9 Type 2 diabetes mellitus without complications; J43.2 Centrilobular emphysema; E03.9 Hypothyroidism, unspecified; K21.9 Gastro-esophageal reflux disease without esophagitis; K42.9 Umbilical hernia without obstruction or gangrene; K43.9 Ventral hernia without obstruction or gangrene; K56.600 Partial intestinal obstruction, unspecified as to cause; K80.20 Calculus of gallbladder without cholecystitis without obstruction; N40.0 Benign prostatic hyperplasia without lower urinary tract symptoms; Z85.118 Personal history of other malignant neoplasm of bronchus and lung; Z85.528 Personal history of other malignant neoplasm of kidney; Z87.891 Personal history of nicotine dependence; Z90.49 Acquired absence of other specified parts of digestive tract; Z90.5 Acquired absence of kidney; Z79.899 Other long term (current) drug therapy; Z98.890 Other specified postprocedural states
CPT/HCPCS: 36415; 74177; 80053; 81001; 82962; 83605; 83690; 83735; 84484; 85025; 87428; 93005; 96361; 96372; 96374; 96375; 99285; G0378; J1642; J1644; J2270; J2405; J7030; Q9967; G0379